=== PATIENT | female | born 1930 | race Caucasian/White ===

== ENCOUNTER 2020-04-05 00:28 | Emergency (ER) | payer OTHER ==
--- OUTSIDE RECORDS SUMMARY | 2020-04-05 00:31 | XMS REPORT | Clinical Summary ---
:1930 Author Organization [facility] Address [address] [place] [address] Care Team Providers Name Role Phone Issa Beckford MD Primary Care Provider Allergies Active Allergy Reactions Severity Noted Date Comments Sulfa (Sulfonamide Antibiotics) Unknown Reaction 03/27 Medications Medication Sig Dispensed Refills Start Date End Date Status Ventolin HFA 90 Inhale 2 puffs 0 03/01/2020 Active mcg/actuation every 6 (six) inhaler hours as needed. amLODIPine (NORVASC) Take 10 mg by 0 01/16/2020 Active 10 mg tablet mouth daily. metoprolol succinate 0 01/16/2020 Active XL (TOPROL-XL) 100 mg 24 hr tablet clonIDINE (CATAPRES) Take 0.1 mg by 0 03/13/2020 Active 0.1 MG tablet mouth. levothyroxine Take 112 mcg by 0 03/20/2020 Active (SYNTHROID) 112 mcg mouth every tablet morning. losartan-hydrochloro Take 1 tablet by 0 12/28/2019 Active thiazide (HYZAAR) mouth every 100-25 mg per tablet morning. multivitamin Take 1 tablet by 0 Active (THERAGRAN) tablet mouth daily. calcium carbonate Take 600 mg by 0 Active (Calcium 600) 600 mg mouth 2 (two) calcium (1,500 mg) times a day with tablet meals. aspirin (ECOTRIN) 81 Take 81 mg by 0 Active MG enteric coated mouth daily. tablet cholecalciferol, Take 400 Units by 0 Active vitamin D3, 400 unit mouth daily. tablet docusate sodium Take by mouth. 0 Active (STOOL SOFTENER ORAL) polyethylene glycol Take by mouth. 0 Active 3350 (MIRALAX ORAL) mv-min/vit Take by mouth. 0 Acti ve C/glut/lysine/hb124 (IMMUNE SUPPORT ORAL) predniSONE Take 4 tabs for 5 50 tablet 0 03/27/2020 04/10/2020 Active (DELTASONE) 10 mg days, 3 tabs for 5 tablet days, 2 tabs for 5 days, 1 tabs for 5days albuterol (ACCUNEB) Take 3 mL (2.5 mg 360 mL 3 04/04/2020 1 Active 2.5 mg /3 mL (0.083 total) by %) nebulizer nebulization every solutionIndications: 6 (six) hours as Pulmonary nodule, needed for SOB (shortness of wheezing for up to breath) on exertion 30 days. nebulizers 1 vial Every 6 1 each 1 04/04/2020 05/04/2020 Ac tive miscIndications: hours while awake Pulmonary nodule, as needed (RT) SOB (shortness of (sob) for up to 30 breath) on exertion days. doxycycline Take 1 tablet (100 14 tablet 0 03/27/2020 04/03/20 20 (VIBRA-TABS) 100 MG mg total) by mouth tablet 2 (two) times a day for 7 days. Active Problems Not on file Encounters Date Type Specialty Care Team Description 04/04/2020 Orders Only Pulmontena Brice SOB (shortness of breath) on exertion (Primary Dx); RADHA Killian Pulmonary nodu le 03/29/2020 Hospital Encounter Radiology Fiona Bernard MD Arriv ed 03/29/2020 Travel 03/29/2020 Orders Only Pulmonology Micki Manriquez MA Lung mass ( Primary Dx) 03/29/2020 Orders Only Pulmonology Fiona Bernard MD Lung mass ( Primary Dx) 03/28/2020 Telephone PulmonMaria D Lindquist MA 03/27/2020 Office Visit Pulmonology Fiona Bernard MD Pulmonary n odule (Primary Dx); Lung mass 03/26/2020 Travel after 04/05/2019 Family History Medical History Relation Name Comments No Known Problems Brother No Known Problems Father No Known Problems Maternal Aunt No Known Problems Maternal Grandfather No Known Problems Maternal Grandmother No Known Problems Maternal Uncle No Known Problems Mother No Known Problems Other No Known Problems Paternal Aunt No Known Problems Paternal Grandfather No Known Problems Paternal Grandmother No Known Problems Paternal Uncle No Known Problems Sister Alpha-1 antitrypsin deficiency Neg Hx Asthma Neg Hx COPD Neg Hx Cancer Neg Hx Coronary artery disease Neg Hx Deep vein thrombosis Neg Hx Diabetes Neg Hx Emphysema Neg Hx Heart failure Neg Hx Hypertension Neg Hx Pulmonary Arterial Hypertension Neg Hx Pulmonary embolism Neg Hx Sarcoidosis Neg Hx Sleep apnea Neg Hx Relation Name Status Comments Brother Father Maternal Aunt Maternal Grandfather Maternal Grandmother Maternal Uncle Mother Other Paternal Aunt Paternal Grandfather Paternal Grandmother Paternal Uncle Sister Social History Tobacco Use Types Packs/Day Years Used Date Never Smoker Smokeless Tobacco: Never Used Alcohol Use Drinks/Week oz/Week Comments Never Alcohol Habits Answer Date Recorded How often do you have a drink containing alcohol? Never 03/27/2020 How many drinks containing alcohol do you have on a typical Not asked day when you are drinking? How often do you have six or more drinks on one occasion? No t asked Sex Assigned at Date Recorded Not on file COVID-19 Exposure Response Date Recorded In the last month, have you been in contact with No / Unsure 03/26/2020 10:34 AM CDT someone who was confirmed or suspected to have Coronavirus / COVID-19? Last Filed Vital Signs Vital Sign Reading Time Taken Comments Blood Pressure - - Pulse 69 03/27/2020 2:09 PM CDT Temperature - - Respiratory Rate - - Oxygen Saturation 98% 03/27/2020 2:09 PM CDT Inhaled Oxygen Concentration - - Weight - - Height - - Body Mass Index - - Plan of Treatment Date Type Specialty Care Team Description 04/23/2020 [place] [address] [phone] Health Maintenance Due Date Last Done Comments SHINGLES VACCINES (#1) 1982 65+ PNEUMOCOCCAL VACCINE (1 of 1 - PPSV23) 1997 INFLUENZA VACCINE 03/13/2020 Results Not on fileafter 04/05/2019 Insurance Payer Benefit Plan / Subscriber ID Effective Dates Phone Addre ss Type Group HUMANA MEDICARE HUMANA MEDICARE [id number] 2018-Present PPO PPO/PFFS/ERS MCR (Home) [place] [address] Advance Directives For more information, please contact: [phone] Type Date Recorded Patient Supervisor Policy Change Clerks Explanati on Advance Directives, Living Will and Medical Power of Creative Producer
--- OUTSIDE RECORDS SUMMARY | 2020-04-05 00:31 | XMS REPORT | Summary of Care ---
:1930 Author Organization [facility] - Health Address [address] [place] [id number] Care Team Providers Name Role Phone Issa Beckford Primary Care Provider Encounter Details Date Type Department Care Team Description 02/02/2020 Orders Only [facility] Doctor Unassigned, No [address] [facility] [place] [address] [address] [place] [address] Allergies Active Allergy Reactions Severity Noted Date Comments Sulfa (Sulfonamide Antibiotics) Rash 8 documented as of this encounter (statuses as of 02/02/2020) Medications Medication Sig Dispensed Refills Start Date End Date Status irbesartan 300 mg Take 300 mg by 0 Active tablet mouth at bedtime. metoprolol succinate Take 100 mg by 0 Active XL (TOPROL XL) 100 mg mouth daily. 24 hr tablet amLODIPine 5 mg tablet Take 1 tablet by 30 tablet 0 04/17/2018 Active mouth daily. aspirin 81 mg chewable Take 81 mg by 0 Active tablet mouth daily. multivit with Take by mouth. 0 Active minerals/lutein (MULTIVITAMIN 50 PLUS ORAL) calcium Take by mouth. 0 Acti ve carbonate/vitamin D3 (CALCIUM 500 + D ORAL) levothyroxine 112 mcg Take 1 tablet by 30 tablet 0 06/04/2019 Active tabletIndications: mouth every Complicated UTI morning. (urinary tract infection), Colitis albuterol 90 Inhale 2 Puffs 8.5 g 11 11/25/2019 A ctive mcg/actuation every 6 (six) inhalerIndications: hours as needed Dyspnea on exertion for Wheezing or Shortness of Breath. documented as of this encounter (statuses as of 02/02/2020) Active Problems Problem Noted Date UTI (urinary tract infection) 06/03/2019 Dizziness 06/03/2019 C. difficile colitis 06/03/2019 Complicated UTI (urinary tract infection) 06/02/2019 Essential hypertension 04/17/2018 Syncope 04/16/2018 documented as of this encounter (statuses as of 02/02/2020) Social History Tobacco Use Types Packs/Day Years Used Date Never Smoker Smokeless Tobacco: Never Used Alcohol Use Drinks/Week oz/Week Comments Never Alcohol Habits Answer Date Recorded How often do you have a drink containing alcohol? Never 01/31/2019 How many drinks containing alcohol do you have on a typical Not asked day when you are drinking? How often do you have six or more drinks on one occasion? No t asked Sex Assigned at Date Recorded Not on file Job Start Date Occupation Industry Not on file Not on file Not on file Travel History Travel Start Travel End No recent travel history available. documented as of this encounter Last Filed Vital Signs Not on filedocumented in this encounter Plan of Treatment Date Type Specialty Care Team Description 02/02/2020 Office Visit Pulmonary Disease Sloan Levine, [address] [place] [address] Health Maintenance Due Date Last Done Comments DTaP,Tdap,and Td Vaccines (1 - Tdap) 1941 Depression Screening 1944 Zoster Recombinant Vaccine (SHINGRIX) (1 of 2) 1982 Medicare Wellness Visit 1997 Osteoporosis Screening 1997 PNEUMOCOCCAL VACCINES 65+ (1 of 2 - PCV13) 1997 INFLUENZA VACCINE (#1) 2020 documented as of this encounter Implants Implanted Type Area Mural Artist Device Identifier Shelf Exp iration Model / Serial Date / Lot Knee documented as of this encounter Procedures Procedure Name Priority Date/Time Associated Diagnosis Comme nts CONSENT/REFUSAL FOR Routine 02/02/2020 8:48 AM CDT DIAGNOSIS AND TREATMENT documented in this encounter Results Not on filedocumented in this encounter Additional Health Concerns Infection Onset Date Last Indicated Resolved Time Extended Contact- CDiff 06/04/2019 06/04/2019 documented as of this encounter Insurance Payer Benefit Plan / Subscriber ID Effective Dates Phone Addre ss Type Group HUMANA - HUMANA [id number] [facility] Adv MANAGED MEDICARE t FFS MEDICARE documented as of this encounter
--- OUTSIDE RECORDS SUMMARY | 2020-04-05 00:31 | XMS REPORT | Continuity of Care Document ---
:1930 Author Organization [facility] t Address [address] [place] [address] Care Team Providers Name Role Phone Roberto Beckford MD Primary Care Physician Yuniel GARCIA Attending Clinician Unavailable Abner CHUNG Attending Clinician Marco Antonio GALVAN Attending Clinician Declan GARCIA Attending Clinician Unavailable Doctor Unassigned, Name Attending Clinician Unavailable Only, Test Attending Clinician Unavailable Pob, Lab Main Attending Clinician Unavailable Amaya GALVAN Attending Clinician Payers Payer Name Policy Type Policy Effective Date Expiration Date Sour ce Number HUMANA [id number] 2018 [place] MEDICAREHUMANA 00:00:00 Jew MEDICARE PPO/PFFS/ERS [id number] 2019 -PresentPPO Problems This patient has no known problems. Allergies, Adverse Reactions, Alerts Allergy Allergy Status Severity Reaction(s) Onset Inactive Treating Comm ents Source Name Type Date Date Clinician Sulfa Propensi Active Unknown [place] (Sulfona ty to Reaction 9-15 Method i mide adverse 00:00: st Antibiot reaction 00 ics) s to drug Family History Family Member Diagnosis Comments Start Date Stop Date Source Natural brother No Known Problems [place] Jew Natural father No Known Problems Stefanie ston Jew Maternal aunt No Known Problems [place] Jew Maternal No Known Problems [place] grandfather Jew Maternal No Known Problems [place] grandmother Jew Maternal uncle No Known Problems Stefanie ston Jew Natural mother No Known Problems Stefanie ston Jew Other No Known Problems [place] Jew Paternal aunt No Known Problems [place] Jew Paternal No Known Problems [place] grandfather Jew Paternal No Known Problems [place] grandmother Jew Paternal uncle No Known Problems Stefanie ston Jew Natural sister No Known Problems Stefanie ston Jew Family member Alpha-1 antitrypsin [place] deficiency Jew Family member Asthma [place] Jew Family member COPD [place] Jew Family member Cancer [place] Jew Family member Coronary artery [place] disease Jew Family member Deep vein thrombosis [place] Jew Family member Diabetes [place] Jew Family member Emphysema [place] Jew Family member Heart failure [place] Jew Family member Hypertension [place] Jew Family member Pulmonary Arterial Stefanie ston Hypertension Jew Family member Pulmonary embolism Stefanie ston Jew Family member Sarcoidosis [place] Jew Family member Sleep apnea [place] Jew Social History Social Habit Start Date Stop Date Quantity Comments Source History [facility] Meth odist Alcohol Std Drinks History [facility] Meth odist Alcohol Binge Sex Assigned At [facility] ethodist Exposure to Not sure [place] Metho dist SARS-CoV-2 (event) Tobacco use and 2020-03-27 2020-03-27 Never used [facility] ethodist exposure 00:00:00 00:00:00 Alcohol intake 2020-03-27 2020-03-27 Lifetime [facility] thodist 00:00:00 00:00:00 non-drinker (finding) History SDOH 2020-03-27 2020-03-27 1 [place] Meth odist Alcohol Frequency 00:00:00 00:00:00 Smoking Status Start Date Stop Date Source Never smoker [facility] Medications Ordered Filled Start Stop Current Ordering Indication Dosage Frequency Signature Comments Components Source Medication Medication Date Date Medication? Clinician (SIG) Name Name albuterol 2020- Yes SOB 2.5mg Q6H Take 3 mL [place] (ACCUNEB) 04-04 (shortness (2.5 mg Methodi 2.5 mg /3 00:00: 23:59 of breath) total) by st mL (0.083 00 :00 on exertion nebulizati %) on every 6 nebulizer (six) solution hours as needed for wheezing for up to 30 days. nebulizers 2020- Yes SOB 1{vial} Q6H 1 vial [place] misc 04-0423 (shortness Every 6 Metho di 00:00: 23:59 of breath) hours st 00 :00 on exertion while awake as needed (RT) (sob) for up to 30 days. multivitami 2020-0 Yes 1{tbl} QD Take 1 [place] n 9-15 tablet by Methodi (THERAGRAN) 14:09: mouth st tablet 48 daily. calcium 2020-0 Yes 600mg Q.5D Take 600 [place] carbonate 9-15 mg by Methodi (Calcium 14:09: mouth 2 st 600) 600 mg 48 (two) calcium times a (1,500 mg) day with tablet meals. aspirin 2020-0 Yes 81mg QD Take 81 mg [place] (ECOTRIN) 15 by mouth Method i 81 MG 14:09: daily. st enteric 48 coated tablet cholecalcif 2020-0 Yes 400U QD Take 400 [place] lian, 9-15 Units by Methodi vitamin D3, 14:09: mouth st 400 unit 48 daily. tablet docusate 2020-0 Yes Take by [place] sodium -15 mouth. Methodi (STOOL 14:09: st SOFTENER 48 ORAL) polyethylen 2020-0 Yes Take by Stefanie ston e glycol -15 mouth. Methodi 3350 14:09: st (MIRALAX 48 ORAL) mv-min/vit 2020-0 Yes Take by [place] C/glut/lysi 15 mouth. Method i ne/hb124 14:09: st (IMMUNE 48 SUPPORT ORAL) predniSONE 2020-0 2020- Yes Take 4 [place] (DELTASONE) 03-27 tabs for 5 M ethodi 10 mg 00:00: 23:59 days, 3 st tablet 00 :00 tabs for 5 days, 2 tabs for 5 days, 1 tabs for 5days doxycycline 2020-0 2020- No 100mg Q.5D Take 1 [place] (VIBRA-TABS 03-27 tablet Metho di ) 100 MG 00:00: 23:59 ([address] tablet 00 :00 total) by mouth 2 (two) times a day for 7 days. levothyroxi 2020-0 Yes 112ug QD Take 112 H [facility] ne 9-08 mcg by Methodi (SYNTHROID) 00:00: mouth st 112 mcg 00 every tablet morning. clonIDINE 2020-0 Yes .1mg Take 0.1 [place] (CATAPRES) 9-01 mg by Methodi 0.1 MG 00:00: mouth. st tablet 00 Ventolin 2019-0 Yes 2{puff} Q6H Inhale 2 Ho xi HFA 90 8-20 puffs Methodi mcg/actuati 00:00: every 6 st on inhaler 00 (six) hours as needed. amLODIPine 2019-0 Yes 10mg QD Take 10 mg [place] (NORVASC) 7-06 by mouth Method i 10 mg 00:00: daily. st tablet 00 metoprolol 2019-0 Yes [place] succinate 7-06 Methodi XL 00:00: st (TOPROL-XL) 00 100 mg 24 hr tablet losartan-hy Yes 1{tbl} QD Take 1 Ho xi drochloroth 6-17 tablet by Met hodi iazide 00:00: mouth st (HYZAAR) 00 every 100-25 mg morning. per tablet Vital Signs Vital Name Observation Time Observation Value Comments Source Heart rate 2020-03-27 14:09:00 69 /min Lexa Mallory Oxygen saturation in 2020-03-27 14:09:00 98 /min Lexa Mallory Arterial blood by Pulse oximetry Procedures This patient has no known procedures. Plan of Care Planned Activity Planned Date Details Comments Source Future Scheduled 2020-03-13 INFLUENZA VACCINE Robynto n Jew Test 00:00:00 [code = INFLUENZA VACCINE] Future Scheduled 1997 65+ PNEUMOCOCCAL [place] Jew Test 00:00:00 VACCINE (1 of 1 - PPSV23) [code = 65+ PNEUMOCOCCAL VACCINE (1 of 1 - PPSV23)] Future Scheduled 1982 [facility]IN[facility] 00:00:00 [code = SHINGLES VACCINES (#1)] Encounters Start End Encounter Admission Attending Care Care Encounter Source Date/Time Date/Time Type Type Clinicians Facility Department ID 2020-04-04 2020-04-04 Telephone LUIS Levine [id number] 00:00:00 00:00:00 Sloan Conner [id number] [place] [id number] Yuan [id number] [address] 2020-03-29 2020-03-29 Outpatient [facility] [id number] 053 [place] 00:00:00 00:00:00 JEANETH 959 Method i 2020-03-27 2020-03-27 Outpatient [facility] [id number] 824 [place] 00:00:00 00:00:00 JEANETH 196 Method i 2020-03-22 2020-03-22 Orders Doctor REBECA [id number] 00:00:00 00:00:00 Only Unassigned, DELPHINE [id number] [place] [facility] [id number] 2020-03-21 2020-03-21 Fitting Room Supervisor Only, [facility] [id number] 13:55:31 14:10:31 Visit Test [place] [id number] [place] [id number] [place] [id number] 2020-03-02 2020-03-02 [facility] [id number] 00:00:00 00:00:00 Shiwan [place] [id number] [place] [id number] Professio [phone] [address] 2020-02-23 2020-02-23 [facility] [id number] 00:00:00 00:00:00 Shiwan [place] [id number] [place] [id number] Professio [id number] [address] 2020-02-20 2020-02-20 [facility] [id number] 00:00:00 00:00:00 Shiwan [place] [id number] [place] [id number] Professio [id number] [address] 2020-02-16 2020-02-16 Fitting Room Supervisor Pob, [facility] [id number] 13:57:41 14:40:10 Visit Lab Main [place] [id number] [place] [id number] Professio [phone] [facility] [address] [facility] 2020-02-15 2020-02-15 [facility] [id number] 15:21:00 23:59:00 Encounter Gadiel H [id number] BUILDING [id number] 2020-02-15 2020-02-15 [facility] [id number] 09:28:00 23:59:00 Encounter Gadiel H [id number] [facility] [id number] 2020-02-14 2020-02-14 [facility] [place] Conde [id number] 09:27:00 23:59:00 Encounter Gadiel H [id number] [facility] [id number] Results This patient has no known results.
--- OUTSIDE RECORDS SUMMARY | 2020-04-05 00:32 | XMS REPORT | Summary of Care ---
:[address] [facility] Address [address] [place] [address] Care Team Providers Name Role Phone Shakeel Issa Roberto Primary Care Provider Reason for Referral (Routine) Status Reason Specialty Diagnoses / Referred By Referred To Procedures Contact Contact New Request Pulmonary Function Diagnoses Dyspnea on exertion Lung nodule Sloan Levine, Technologist Procedures DIAGNOSTIC PROCEDURE Preferred Location: [facility] PFT Lab-Main DO [address] [place] [phone] MRI/CAT Scan (Routine) Status Reason Specialty Diagnoses / Referred By Referred To Procedures Contact Contact New Request Diagnostic Diagnoses Dyspnea on exertion Lung nodule Sloan Levine, Radiology Procedures CT THORAX WO CONTRAST DO [address] [place] [phone] Reason for Visit Reason Comments Follow-up Dyspnea on exertion Encounter Details Date Type Department Care Team Description 02/02/2020 Office Visit [facility] Sloan Levine DO Dyspnea on exertion (Primary Dx); Pulmonary Clinic [address] [place] [address] Lung nod[address] [place] [address] , [address] [phone] Allergies Active Allergy Reactions Severity Noted Date [...] Travel End No recent travel history available. COVID-19 Exposure Response Date Recorded In the last month, have you been in contact with No / Unsure 02/02/2020 9:02 AM CDT someone who was confirmed or suspected to have Coronavirus / COVID-19? documented as of this encounter Last Filed Vital Signs Vital Sign Reading Time Taken Comments Blood Pressure 150/79 02/02/2020 9:04 AM CDT Pulse 84 02/02/2020 9:03 AM CDT Temperature - - Respiratory Rate 20 02/02/2020 9:03 AM CDT Oxygen Saturation 94% 02/02/2020 9:03 AM CDT Inhaled Oxygen Concentration - - Weight 57.5 kg (126 lb 11.2 oz) 02/02/2020 9:03 AM CDT Height 165.1 cm (5' 5") 02/02/2020 9:03 AM CDT Body Mass Index 21.08 02/02/2020 9:03 AM CDT documented in this encounter Progress Notes Sloan Levine, - 02/02/2020 9:00 AM CDT [facility] Inter[facility] Pulmonology [facility] Chief Complaint: Shortness of breath History of Present Illness: Laura Grande is a 89 year old female here for follow up of shortness of breath with exertion, can walk about 75 yards before she gets short of breath. Symptoms somewhatimproved with albuterol but not using inhaler appropriately. No leg swelling. Past Medical History: has a past medical history of HTN (hypertension) and Hypothyroidism. Past Surgical History: has a past surgical history that includes tonsillectomy; pham bladder suspension; and cholecystectomy. Family History: family history includes Cancer in her mother; Stroke in her father. Social History: reports that she has never smoked. She has never used smokeless tobacco. She reports that she does not drink alcohol. Review of Systems: Review of Systems Constitutional: Negative. HENT: Negative. Eyes: Negative. Respiratory: Positive for shortness of breath. Cardiovascular: Negative. Gastrointestinal: Negative. Genitourinary: Negative. Musculoskeletal: Negative. Skin: Negative. Neurological: Positive for numbness. Psychiatric/Behavioral: Negative. Endocrine: Endocrine negative Objective: BP (!) 150/79 | Pulse 84 | Resp 20 | Ht 5' 5" (1.651 m) | Wt 126 lb 11.2 oz (57.5 kg) | SpO2 94% | BMI 21.08 kg/m Physical Exam Constitutional: She is oriented to person, place, and time. She appears well- developed and well-nourished. HENT: Head: Normocephalic and atraumatic. Eyes: Conjunctivae and EOM are normal. Neck: Normal range of motion. Neck supple. Cardiovascular: Normal rate and regular rhythm. Pulmonary/Chest: Effort normal and breath sounds normal. Abdominal: Soft. Bowel sounds are normal. Musculoskeletal: Normal range of motion. Neurological: She is alert and oriented to person, place, and time. Skin: Skin is warm and dry. Psychiatric: She has a normal mood and affect. Her behavior is normal. Judgment and thought content normal. Labs/Studies: CXR - reviewed images, lung mass, appears stable, RUL but also with some scattered nodules Assessment: ICD-10-CM ICD-9-CM 1. Dyspnea on exertion R06.09 786.09 2. Lung nodule R91.1 793.11 Plan: 1. Continue with albuterol, went over proper inhaler technique 2. Will obtain repeat CT scan of lungs 3. Will obtain lung function testing 4. Follow up 3 months documented in this encounter Plan of Treatment Name Type Priority Associated Diagnoses Order S chedule CT THORAX WO IMAGING Routine Dyspnea on exert ion Expected: CONTRAST Lung nodule 02/02/2020, Expires: 02/01/2021 DIAGNOSTIC PROCEDURE PULMONARY FUNCTION Routine Dyspnea on exertion Ordered: Preferred Location: LAB Lung nodule 02/02/20 20 [facility] PFT Lab-Main Health Maintenance Due Date Last Done Comments DTaP,Tdap,and Td Vaccines (1 - Tdap) 1941 Zoster Recombinant Vaccine (SHINGRIX) (1 of 2) 1982 Medicare Wellness Visit 1997 Osteoporosis Screening 1997 PNEUMOCOCCAL VACCINES 65+ (1 of 2 - PCV13) 1997 INFLUENZA VACCINE (#1) 2020 Depression Screening 02/01/2021 02/02/2020 documented as of this encounter Implants Implanted Type Area Internal Communications Writer Device Identifier Shelf Exp iration Model / Serial Date / Lot Knee documented as of this encounter Results Not on filedocumented in this encounter Visit Diagnoses Diagnosis Dyspnea on exertion - Primary Other dyspnea and respiratory abnormalit y Lung nodule Solitary pulmonary nodule documented in this encounter Additional Health Concerns Infection Onset Date Last Indicated Resolved Time Extended Contact- CDiff 06/04/2019 06/04/2019 documented as of this encounter Insurance Payer Benefit Plan / Subscriber ID Effective Dates Phone Addre ss Type Group HUMANA - HUMANA [id number] 2017-[facility] Adv MANAGED MEDICARE t FFS MEDICARE documented as of this encounter
--- OUTSIDE RECORDS SUMMARY | 2020-04-05 00:32 | XMS REPORT | Summary of Care ---
:1930 Author Organization [facility] Address [address] [place] [address] Care Team Providers Name Role Phone ShakeelIssa Primary Care Provider Reason for Visit Reason Comments Orders Encounter Details Date Type Department Care Team Description 02/02/2020 Telephone [facility] Pulmonary Sloan Levine, Orders Clinic [address] Karlee Stewart [address] [place] [phone] Allergies Active Allergy Reactions Severity Noted Date Comments Sulfa (Sulfonamide Antibiotics) Rash 8 documented as of this encounter (statuses as of 02/03/2020) Medications Medication Sig Dispensed Refills Start Date [...] as of this encounter (statuses as of 02/03/2020) Active Problems Problem Noted Date UTI (urinary tract infection) 06/03/2019 Dizziness 06/03/2019 C. difficile colitis 06/03/2019 Complicated UTI (urinary tract infection) 06/02/2019 Essential hypertension 04/17/2018 Syncope 04/16/2018 documented as of this encounter (statuses as of 02/03/2020) Social History Tobacco Use Types Packs/Day Years [...] Treatment Date Type Specialty Care Team Description 02/09/2020 Appointment Radiology Sloan Levine DO [address] [place] [address] 05/04/2020 Office Visit Pulmonary Disease Sloan Levine DO [address] [place] [address] Health Maintenance Due Date Last Done Comments DTaP,Tdap,and Td Vaccines (1 - Tdap) 1941 Zoster Recombinant Vaccine (SHINGRIX) (1 of 2) 1982 Medicare Wellness Visit 1997 Osteoporosis Screening 1997 PNEUMOCOCCAL VACCINES 65+ (1 of 2 - PCV13) 1997 INFLUENZA VACCINE (#1) 2020 Depression Screening 02/01/2021 02/02/2020 documented as of this encounter Implants Implanted Type Area Accounts Payable Supervisor Device Identifier Shelf Exp iration Model / Serial Date / Lot Knee documented as of this encounter Results Not on filedocumented in this encounter Additional Health Concerns Infection Onset Date Last Indicated Resolved Time Extended Contact- CDiff 06/04/2019 06/04/2019 documented as of this encounter Insurance Payer Benefit Plan / Subscriber ID Effective Dates Phone Addre ss Type Group HUMANA - HUMANA [id number] 2017-[facility] Adv MANAGED MEDICARE t FFS MEDICARE documented as of this encounter
--- OUTSIDE RECORDS SUMMARY | 2020-04-05 00:32 | XMS REPORT | Summary of Care ---
:1930 Author Organization [facility] Address [address] [place] [address] Care Team Providers Name Role Phone Issa Beckford Primary Care Provider Reason for Visit MRI/CAT Scan (Routine) Status Reason Specialty Diagnoses / Referred By Referred To Procedures Contact Contact New Request Diagnostic Diagnoses Dyspnea on exertion Lung nodule Sloan Levine, Radiology Procedures CT THORAX W CONTRAST CT THORAX WO CONTRAST CHG CT SCAN,ABDOMENT AND PELVIS,W CONTRAST CHG CT SCAN,THORAX,W/O CONTRAST CHG CAT SCAN OF CHEST CONTRAST DO [address] [place] [address] Encounter Details Date Type Department Care Team Description 02/09/2020 Hospital Encounter [facility] Abner Watson branmery, Arrived [place] [facility] [address] [place] [phone] Allergies Active Allergy Reactions Severity Noted Date Comments Sulfa (Sulfonamide Antibiotics) Rash 8 documented as of this encounter (statuses as of 02/10/2020) Medications Medication Sig Dispensed Refills Start Date [...] as of this encounter (statuses as of 02/10/2020) Active Problems Problem Noted Date UTI (urinary tract infection) 06/03/2019 Dizziness 06/03/2019 C. difficile colitis 06/03/2019 Complicated UTI (urinary tract infection) 06/02/2019 Essential hypertension 04/17/2018 Syncope 04/16/2018 documented as of this encounter (statuses as of 02/10/2020) Social History Tobacco Use Types Packs/Day Years [...] been in contact with No / Unsure 02/09/2020 9:53 AM CDT someone who was confirmed or suspected to have Coronavirus / COVID-19? documented as of this encounter Last Filed Vital Signs Not on filedocumented in this encounter Plan of Treatment Date Type Specialty Care Team Description 05/04/2020 Office Visit Pulmonary Disease Sloan Levine DO [address] [place] [phone] Health Maintenance Due Date Last Done Comments DTaP,Tdap,and Td Vaccines (1 - Tdap) 1941 Zoster Recombinant Vaccine (SHINGRIX) (1 of 2) 1982 Medicare Wellness Visit 1997 Osteoporosis Screening 1997 PNEUMOCOCCAL VACCINES 65+ (1 of 2 - PCV13) 1997 INFLUENZA VACCINE (#1) 2020 Depression Screening 02/01/2021 02/02/2020 documented as of this encounter Implants Implanted Type Area Harpooner Device Identifier Shelf Exp iration Model / Serial Date / Lot Knee documented as of this encounter Procedures Procedure Name Priority Date/Time Associated Comments Diagnosis CT THORAX W CONTRAST Routine 02/09/2020 10:50 AM Dyspnea on exertion Results for this CDT Lung nodule procedure are i n the results section. HB CREATININE BLOOD Routine 02/09/2020 10:49 AM R esults for this CDT procedure are i n the results section. documented in this encounter Results CT THORAX W CONTRAST (02/09/2020 10:50 AM CDT) Specimen Narrative Performed At HISTORY: Chronic dyspnea PACS/VR/DOSE TECHNIQUE: Contrast-enhanced 64-mutidete ctor CT scan of the chest was completed with intravenous injection of Omnipaque-35 0 non ionic contrast medium. Subsequently numerous sagittal, coronal and MN P reformations were generated. FINDINGS: Comparison is made with 018 CT chest study. Thyroid gland is very small. Trachea and central bronc hial airways appear unremarkable. Numerous spiculated noncalcified soft ti ssue nodules are seen scattered throughout both lungs. Largest mass is 4 .4 x 2.3 cm size in the right apical lung. There are many new nodules since the previous study and the previously visualized nodules all have s hown interval worsening, some of the nodules increasing in size by 2 or 3 times. Small right pleural effusion noted which is a new finding since the previous study. No left-sided pleural effusion or any pericardial effusion. Calcification is seen in the right pleural base nodule (8:31) and there is possibly a very faint calcification in right lower jac g pleural-based 2 cm nodule (8:51). Slightly enlarged lymph nodes again note d in the mediastinum surrounding the trachea and subcarinal space, larges t lymph node in short axis dimension is 9 mm probably increased in size by approx imately 20% since the previous study. Thoracic kyphosis and dextroscoliosis no lexi without any compression fracture deformity or any aggressive bon e lesions. No acute pulmonary thromboembolism detected. Central p ulmonary arteries are dilated although the main pulmonary leandra ry is measuring only 26 mm. Atherosclerosis very mild coronary ather osclerosis is noted. A 10 mm mass in the subdiaphragmatic rig ht lobe of the liver noted which has slightly increased in size compared with the previ ous study. 8 mm cyst is seen in the lateral cortical surface of the right k idney. Short sliding hiatal hernia noted. Noted throughout th e thoracic aorta with ascending aorta is dilated up to 3.7 cm. CONCLUSIONS: 1. Significant interval worsening with numerous new no dules in both lungs and significant increase in the size of previously vis ualized nodules since 2018 study. Findings remain concerning f or pulmonary metastasis. Please correlate with prior clinical workup for diagnosis and further management. 2. Underlying chronic changes of obstruc tive lung disease noted. Small right pleural effusion is new since 2018 study. 3. Interval worsening with increase in the size of med iastinal lymph nodes. 4. Increase in size of liver lesion whic h could be hemangioma. 5. C5, C6 and C7 vertebral bodies showed sclerosis whi ch is new since the previous study which could be either deg enerative change or due to metastatic lesion, however, no metastati c lesions are visualized in the thoracic vertebral bodies. Procedure Note [facility], Radiant Results Inft User - 2019 11:23 AM CDT HISTORY: Chronic dyspnea TECHNIQUE: Contrast-enhanced 64-mutidete ctor CT scan of the chest was completed with intravenous injection of Omnipaque-350 non ionic contrast medium. Subsequently numerous sagittal, coronal and MIP reformations were generated. FINDINGS: Comparison is made with 018 CT chest study. Thyroid gland is very small. Trachea and central bronchial airways appear unremarkable. Numerous spiculated noncalcified soft ti ssue nodules are seen scattered throughout both lungs. Largest mass is 4 .4 x 2.3 cm size in the right apical lung. There are many new nodules since the previous study and the previously visualized nodules all have s hown interval worsening, some of the nodules increasing in size by 2 or 3 times. Small right pleural effusion noted which is a new finding since the previous study. No left-sided pleural ef fusion or any pericardial effusion. Calcification is seen in the right pleur al base nodule (8:31) and there is possibly a very faint calcification in r ight lower lung pleural-based 2 cm nodule (8:51). Slightly enlarged lymph nodes again note d in the mediastinum surrounding the trachea and subcarinal space, larges t lymph node in short axis dimension is 9 mm probably increased in size by approximately 20% since the previous study. Thoracic kyphosis and dextroscoliosis no lexi without any compression fracture deformity or any aggressive bon e lesions. No acute pulmonary thromboembolism detec lexi. Central pulmonary arteries are dilated although the main pulmonary leandra ry is measuring only 26 mm. Atherosclerosis very mild coronary ather osclerosis is noted. A 10 mm mass in the subdiaphragmatic rig ht lobe of the liver noted which has slightly increased in size compared with the previous study. 8 mm cyst is seen in the lateral cortical surface of the right kidney. Short sliding hiatal hernia noted. Noted throughout th e thoracic aorta with ascending aorta is dilated up to 3.7 cm. CONCLUSIONS: 1. Significant interval worsening with n umerous new nodules in both lungs and significant increase in the size of previously visualized nodules since 2018 study. Findings remain concerning f or pulmonary metastasis. Please correlate with prior clinical workup for diagnosis and further management. 2. Underlying chronic changes of obstruc tive lung disease noted. Small right pleural effusion is new since 2018 study. 3. Interval worsening with increase in t he size of mediastinal lymph nodes. 4. Increase in size of liver lesion whic h could be hemangioma. 5. C5, C6 and C7 vertebral bodies showed sclerosis which is new since the previous study which could be either deg enerative change or due to metastatic lesion, however, no metastati c lesions are visualized in the thoracic vertebral bodies. Performing Organization Address City/State/Zipcode Phone Number PACS/VR/DOSE POCT CREATININE (02/09/2020 10:49 AM CDT) Pathologist Sig nature POCT Creatinine 0.9 0.5 - 1.1 mg/dL [facility] Specimen Blood - VENOUS Performing Organization Address City/State/Zipcode Phone Number [facility] CLIA: [id number], [address] [place], [place] [address] documented in this encounter Visit Diagnoses Diagnosis Dyspnea on exertion Other dyspnea and respiratory abnormalit y Lung nodule Solitary pulmonary nodule documented in this encounter Administered Medications Medication Order MAR Action Action Date Dose Rate Site iohexol (OMNIPAQUE 350 BULK-75 mL) Given 02/09/2020 10:45 AM CDT 75 mL injection 75 mL 75 mL, Intravenous, ONCE, 1 dose, Alena 02/09/20 at 1045, Routine documented in this encounter Additional Health Concerns Infection Onset Date Last Indicated Resolved Time Extended Contact- CDiff 06/04/2019 06/04/2019 documented as of this encounter Insurance Payer Benefit Plan / Subscriber ID Effective Dates Phone Addre ss Type Group HUMANA - HUMANA [id number] 2017-[facility] Adv MANAGED MEDICARE t FFS MEDICARE documented as of this encounter
--- OUTSIDE RECORDS SUMMARY | 2020-04-05 00:32 | XMS REPORT | Summary of Care ---
:1930 Author Organization [facility] Address [address] [place] [address] Care Team Providers Name Role Phone ShakeelIssa Primary Care Provider Reason for Visit Reason Comments Results Encounter Details Date Type Department Care Team Description 02/10/2020 Telephone [facility] ADC Pulmonary Sloan Levine DO Results Clinic [address] Karlee Stewart [address] [place] [phone] Allergies Active Allergy Reactions Severity Noted Date Comments Sulfa (Sulfonamide Antibiotics) Rash 8 documented as of this encounter (statuses as of 02/14/2020) Medications Medication Sig Dispensed Refills Start Date [...] as of this encounter (statuses as of 02/14/2020) Active Problems Problem Noted Date UTI (urinary tract infection) 06/03/2019 Dizziness 06/03/2019 C. difficile colitis 06/03/2019 Complicated UTI (urinary tract infection) 06/02/2019 Essential hypertension 04/17/2018 Syncope 04/16/2018 documented as of this encounter (statuses as of 02/14/2020) Social History Tobacco Use Types Packs/Day Years [...] Signs Not on filedocumented in this encounter Miscellaneous Notes Telephone Encounter - Laurita Hsu RN - 02/14/2020 2:51 PM CDTAdvised - Will need three different sputum samples on three different days. elephone Encounter - Kimberly Boland - 02/14/2020 1:14 PM CDTPatient spoke to the nurse Laurita but she is requesting a call back because she has a couple of concerns. Please advise. elephone Encounter - Sloan Levine DO - 02/14/2020 1:03 PM CDTSputum tests ordered. Will need three different sputum samples on three different days. elephone Encounter - Laurita Hsu RN - 02/14/2020 12:37 PM [phone] (home) Laura Grande was informed of Dr. Levine's recommendations and verbalized an understanding. She is willing to do the sputum tests first. reviewed how to obtain a sputum sample with her. Laurita RN Please let patient know CT scan reviewed, it shows nodular opacities. Overall the scan is suspiciousfor a chronic lung infection. I would recommend that we get sputum samples to look for infection andif this is not possible then to do a bronchoscopy to go down into the lungs and get samples. We can set up an appointment this week to discuss further if patient desires. Dr. Sloan Levine Telephone Encounter - Tabatha Owens - 02/13/2020 3:45 PM CDTPatient would like results of CT scan elephone Encounter - Sloan Levine DO - 02/13/2020 11:46 AM CDTPlease let patient know CT scan reviewed, it shows nodular opacities. Overall the scan is suspiciousfor a chronic lung infection. I would recommend that we get sputum samples to look for infection andif this is not possible then to do a bronchoscopy to go down into the lungs and get samples. We can set up an appointment this week to discuss further if patient desires. elephone Encounter - Victoria Vaughan MA - 02/10/2020 1:[address] Levine for results. CT was done on 02/09/2020 elephone Encounter - Kimberly Boland - 02/10/2020 8:47 AM CDTPatient is requesting a call back in regards to her CT scan results because she is concern due to her shortness of breath increasing. documented in this encounter Plan of Treatment Date Type Specialty Care Team Description 05/04/2020 Office Visit Pulmonary Disease Sloan Levine DO [address] [place] [phone] Name Type Priority Associated Diagnoses Order S chedule SPUTUM CULTURE LAB Routine Abnormal CT scan of lung E xpected: 02/14/2020, Expires: 2020 AFB CULTURE LAB Routine Abnormal CT scan of lung 3 O ccurrences starting 02/14/2020 unti l 02/11/2021 FUNGUS (ROUTINE) LAB Routine Abnormal CT scan of lung Expected: 02/14/2020, CULTURE Expires: 2020 Health Maintenance Due Date Last Done Comments DTaP,Tdap,and Td Vaccines (1 - Tdap) 1949 Zoster Recombinant Vaccine (SHINGRIX) (1 of 2) 1982 Medicare Wellness Visit 1997 Osteoporosis Screening 1997 PNEUMOCOCCAL VACCINES 65+ (1 of 1 - PPSV23) 1997 INFLUENZA VACCINE (#1) 2020 Depression Screening 02/01/2021 02/02/2020 documented as of this encounter Implants Implanted Type Area Manufacturing Controls Engineer Device Identifier Shelf Exp iration Model / Serial Date / Lot Knee documented as of this encounter Results Not on filedocumented in this encounter Visit Diagnoses Diagnosis Abnormal CT scan of lung - Primary Other nonspecific abnormal finding of tabitha ng field documented in this encounter Additional Health Concerns Infection Onset Date Last Indicated Resolved Time Extended Contact- CDiff 06/04/2019 06/04/2019 documented as of this encounter Insurance Payer Benefit Plan / Subscriber ID Effective Dates Phone Addre ss Type Group HUMANA - HUMANA [id number] [facility] t FFS MEDICARE documented as of this encounter
--- OUTSIDE RECORDS SUMMARY | 2020-04-05 00:32 | XMS REPORT | Summary of Care ---
:1930 Author Organization [facility] Address [address] [place] [address] Care Team Providers Name Role Phone Shakeel Issa Roberto Primary Care Provider Reason for Referral (Routine) Status Reason Specialty Diagnoses / Referred By Referred To Procedures Contact Contact New Request Pulmonary Function Diagnoses Dyspnea on exertion Lung nodule Sloan Levine, Technologist Procedures DIAGNOSTIC PROCEDURE Preferred Location: [facility]-Main DO [address] [place] [phone] MRI/CAT Scan (Routine) Status Reason Specialty Diagnoses / Referred By Referred To Procedures Contact Contact New Request Diagnostic Diagnoses Dyspnea on exertion Lung nodule Sloan Levine, Radiology Procedures CT THORAX WO CONTRAST DO [address] [place] [phone] Reason for Visit Reason Comments Follow-up Dyspnea on exertion Encounter Details Date Type Department Care Team Description 02/02/2020 Office Visit [facility] Sloan Levine DO Dyspnea on exertion (Primary Dx); Pulmonary Clinic [address] [place] [address] Lung nod[address] [place] [address] , [address] [phone] Allergies Active Allergy Reactions Severity Noted Date [...] Sloan Levine, - 02/02/2020 9:00 AM CDT [facility] Interventional Pulmonology Clinic Chief Complaint: Shortness [...] Office Visit Pulmonary Disease Sloan Levine DO [address] [place] [address] Name Type Priority Associated Diagnoses Order S [...] of this encounter Implants Implanted Type Area Showcase Maker Device Identifier Shelf Exp iration Model / [...] Addre ss Type Group HUMANA - HUMANA [id number] [facility] MANAGED MEDICARE t S MEDICARE documented as of this encounter
--- OUTSIDE RECORDS SUMMARY | 2020-04-05 00:33 | XMS REPORT | Summary of Care ---
:1930 Author Organization [facility] Address [address] [place] [address] Care Team Providers Name Role Phone BeckfordIssa Primary Care Provider Reason for Visit Reason Comments LAB WORK Auth/Cert Status Reason Specialty Diagnoses / Procedures Referred By C ontact Referred To Contact Phlebotomy Procedures Adc Pob Lab Draw FUNGUS (BLOOD) CULTURE Pr ofessional Office Building [address] [place] [address] , [address] [place] [address] Phone: Fax: Encounter Details Date Type Department Care Team Description 02/16/2020 Cable Engineer Outside Plant Visit [facility] Sloan Levine D O [address] [place] [phone] scan of Professional Office Pob, Adc Lab Main lung Building Phlebotomy Lab Professional Office Building [address] [place] [address] , [address] [place] [address] Allergies Active Allergy Reactions Severity Noted Date Comments Sulfa (Sulfonamide Antibiotics) Rash 8 documented as of this encounter (statuses as of 02/16/2020) Medications Medication Sig Dispensed Refills Start Date [...] as of this encounter (statuses as of 02/16/2020) Active Problems Problem Noted Date UTI (urinary tract infection) 06/03/2019 Dizziness 06/03/2019 C. difficile colitis 06/03/2019 Complicated UTI (urinary tract infection) 06/02/2019 Essential hypertension 04/17/2018 Syncope 04/16/2018 documented as of this encounter (statuses as of 02/16/2020) Social History Tobacco Use Types Packs/Day Years [...] Office Visit Pulmonary Disease Sloan Levine DO [address] [place] [address] Health Maintenance Due Date Last Done Comments DTaP,Tdap,and Td Vaccines (1 - Tdap) 1949 Zoster Recombinant Vaccine (SHINGRIX) (1 of 2) 1982 Medicare Wellness Visit 1997 Osteoporosis Screening 1997 PNEUMOCOCCAL VACCINES 65+ (1 of 1 - PPSV23) 1997 INFLUENZA VACCINE (#1) 2020 Depression Screening 02/01/2021 02/02/2020 documented as of this encounter Implants Implanted Type Area Kerfer Machine Operator Device Identifier Shelf Exp iration Model / Serial Date / Lot Knee documented as of this encounter Results Not on filedocumented in this encounter Visit Diagnoses Diagnosis Abnormal CT scan of lung Other nonspecific abnormal finding of tabitha ng field documented in this encounter Additional Health Concerns Infection Onset Date Last Indicated Resolved Time Extended Contact- CDiff 06/04/2019 06/04/2019 documented as of this encounter Insurance Payer Benefit Plan / Subscriber ID Effective Dates Phone Addre ss Type Group HUMANA - HUMANA [id number] 2017-[facility] Adv MANAGED MEDICARE t FFS MEDICARE documented as of this encounter
--- OUTSIDE RECORDS SUMMARY | 2020-04-05 00:33 | XMS REPORT | Summary of Care ---
:[address] [facility] Address [address] [place] [address] Care Team Providers Name Role Phone BeckfordIssa Primary Care Provider Reason for Visit Reason Comments LAB WORK Auth/Cert Status Reason Specialty Diagnoses / Procedures Referred By C ontact Referred To Contact Phlebotomy Procedures Adc Pob Lab Draw FUNGUS (BLOOD) CULTURE Pr ofessional Office Building [address] [place] [address] , [address] [place] [address] Phone: Fax: Encounter Details Date Type Department Care Team Description 02/16/2020 Research Recruiter Visit [facility] Sloan Levine D O [address] [place] [phone] scan of Professional Office Pob, Adc Lab Main lung Building Phlebotomy Lab Professional Office Building [address] [place] [address] , [address] [place] [address] Allergies Active Allergy Reactions Severity [...] Office Visit Pulmonary Disease Sloan Levine DO [address] [place] [address] Health Maintenance Due Date Last Done Comments DTaP,Tdap,and Td Vaccines (1 - Tdap) 1949 Zoster Recombinant Vaccine (SHINGRIX) (1 of 2) 1982 Medicare Wellness Visit 1997 Osteoporosis Screening 1997 PNEUMOCOCCAL VACCINES 65+ (1 of 1 - PPSV23) 1997 INFLUENZA VACCINE (#1) 2020 Depression Screening 02/01/2021 02/02/2020 documented as of this encounter Implants Implanted Type Area Talent Acquisition Sourcer Device Identifier Shelf Exp iration Model / [...] Addre ss Type Group HUMANA - HUMANA [id number] 2017-[facility] Adv MANAGED MEDICARE t FFS MEDICARE documented as of this encounter
--- OUTSIDE RECORDS SUMMARY | 2020-04-05 00:33 | XMS REPORT | Summary of Care ---
:1930 Author Organization [facility] Address [address] [place] [address] Care Team Providers Name Role Phone BeckfordIssa Primary Care Provider Reason for Visit Reason Comments LAB WORK Auth/Cert Status Reason Specialty Diagnoses / Procedures Referred By C ontact Referred To Contact Phlebotomy Procedures Adc Pob Lab Draw FUNGUS (BLOOD) CULTURE Pr ofessional Office Building [address] [place] [address] , [address] [place] [address] Phone: Fax: Encounter Details Date Type Department Care Team Description 02/16/2020 Chemical Compounder Helper Visit [facility] Sloan Levine D O [address] [place] [phone] scan of Professional Office Pob, Adc Lab Main lung Building Phlebotomy Lab Professional Office Building [address] [place] [address] , [address] [place] [address] Allergies Active Allergy Reactions Severity [...] Signs Not on filedocumented in this encounter Nursing Notes Kaye Watts - 02/16/2020 2:15 PM CDT Patient presented with specimen for drop-off and was identified by and name. Collection information/ total volume were documented accordingly. [facility] on : 24 hour urine Random urine Stool Swab Other SPUTUM X 3 documented in this encounter Plan of Treatment Date Type Specialty Care Team Description 05/04/2020 Office Visit Pulmonary Disease Levine TiannamignonprabhuDO [address] [place] [address] Health Maintenance Due Date Last Done Comments DTaP,Tdap,and Td Vaccines (1 - Tdap) 1949 Zoster Recombinant Vaccine (SHINGRIX) (1 of 2) 1982 Medicare Wellness Visit 1997 Osteoporosis Screening 1997 PNEUMOCOCCAL VACCINES 65+ (1 of 1 - PPSV23) 1997 INFLUENZA VACCINE (#1) 2020 Depression Screening 02/01/2021 02/02/2020 documented as of this encounter Implants Implanted Type Area Journeyman Plumber Device Identifier Shelf Exp iration Model / [...] Addre ss Type Group HUMANA - HUMANA [id number] 2017-[facility] Adv MANAGED MEDICARE t FFS MEDICARE documented as of this encounter
--- OUTSIDE RECORDS SUMMARY | 2020-04-05 00:33 | XMS REPORT | Summary of Care ---
:1930 Author Organization [facility] Address [address] [place] [address] Care Team Providers Name Role Phone BeckfordIssa Primary Care Provider Reason for Visit Reason Comments LAB WORK Auth/Cert Status Reason Specialty Diagnoses / Procedures Referred By C ontact Referred To Contact Phlebotomy Procedures Adc Pob Lab Draw FUNGUS (BLOOD) CULTURE Pr ofessional Office Building [address] [place] [address] , [address] [place] [address] Phone: Fax: Encounter Details Date Type Department Care Team Description 02/16/2020 Drill Hand Visit [facility] Sloan Levine D O [address] [place] [phone] scan of Professional Office Pob, Adc Lab Main lung Building Phlebotomy Lab Professional Office Building [address] [place] [address] , [address] [place] [address] Allergies Active Allergy Reactions Severity [...] Office Visit Pulmonary Disease Sloan Levine DO [address] [place] [address] Health Maintenance Due Date Last Done Comments DTaP,Tdap,and Td Vaccines (1 - Tdap) 1949 Zoster Recombinant Vaccine (SHINGRIX) (1 of 2) 1982 Medicare Wellness Visit 1997 Osteoporosis Screening 1997 PNEUMOCOCCAL VACCINES 65+ (1 of 1 - PPSV23) 1997 INFLUENZA VACCINE (#1) 2020 Depression Screening 02/01/2021 02/02/2020 documented as of this encounter Implants Implanted Type Area Bindery Supervisor Device Identifier Shelf Exp iration Model [...] Addre ss Type Group HUMANA - HUMANA [id number] 2017-[facility] Adv MANAGED MEDICARE t FFS MEDICARE documented as of this encounter
--- OUTSIDE RECORDS SUMMARY | 2020-04-05 00:34 | XMS REPORT | Summary of Care ---
:1930 Author Organization [facility] Address [address] [place] [address] Care Team Providers Name Role Phone Issa Beckford Primary Care Provider Encounter Details Date Type Department Care Team Description 02/15/2020 Hospital Encounter [facility] LAB Specimen Gadiel Conde, Carolee-Marcelo luna MD [address] [place] [phone] [place] [address] Allergies Active Allergy Reactions Severity Noted Date Comments Sulfa (Sulfonamide Antibiotics) Rash 8 documented as of this encounter (statuses as of 02/23/2020) Medications Medication Sig Dispensed Refills Start Date [...] as of this encounter (statuses as of 02/23/2020) Active Problems Problem Noted Date UTI (urinary tract infection) 06/03/2019 Dizziness 06/03/2019 C. difficile colitis 06/03/2019 Complicated UTI (urinary tract infection) 06/02/2019 Essential hypertension 04/17/2018 Syncope 04/16/2018 documented as of this encounter (statuses as of 02/23/2020) Social History Tobacco Use Types Packs/Day Years [...] Description 05/04/2020 Office Visit Pulmonary Disease Sloan Levine, [address] [place] [address] Health Maintenance Due Date Last Done Comments DTaP,Tdap,and Td Vaccines (1 - Tdap) 1949 Zoster Recombinant Vaccine (SHINGRIX) (1 of 2) 1982 Medicare Wellness Visit 1997 Osteoporosis Screening 1997 PNEUMOCOCCAL VACCINES 65+ (1 of 1 - PPSV23) 1997 INFLUENZA VACCINE (#1) 2020 Depression Screening 02/01/2021 02/02/2020 documented as of this encounter Implants Implanted Type Area Freezer Machine Operator Device Identifier Shelf Exp iration Model / Serial Date / Lot Knee documented as of this encounter Results Not on filedocumented in this encounter Additional Health Concerns Infection Onset Date Last Indicated Resolved Time Extended Contact- CDiff 06/04/2019 06/04/2019 documented as of this encounter Insurance Payer Benefit Plan / Subscriber ID Effective Dates Phone Addre ss Type Group HUMANA - HUMANA [id number] 2017-[facility] Adv MANAGED MEDICARE t S MEDICARE documented as of this encounter
--- OUTSIDE RECORDS SUMMARY | 2020-04-05 00:34 | XMS REPORT | Summary of Care ---
:1930 Author Organization [facility] Address [address] [place] [address] Care Team Providers Name Role Phone ShakeelIssaton Primary Care Provider Reason for Visit Reason Comments LAB WORK Auth/Cert Status Reason Specialty Diagnoses / Referred By Referred To Procedures Contact Contact Clinical Medical Adc Lab Laboratory [address] [place] [address] Encounter Details Date Type Department Care Team Description 03/21/2020 Marketing Communications Coordinator Visit [facility] Sloan Levine D O [address] [place] [address] Pre-operative Phlebotomy Only, Adc Test clearance (Primary Lab-Issue Dx) [address] [place] [address] Allergies Active Allergy Reactions Severity Noted Date Comments Sulfa (Sulfonamide Antibiotics) Rash 8 documented as of this encounter (statuses as of 03/21/2020) Medications Medication Sig Dispensed Refills Start Date [...] as of this encounter (statuses as of 03/21/2020) Active Problems Problem Noted Date UTI (urinary tract infection) 06/03/2019 Dizziness 06/03/2019 C. difficile colitis 06/03/2019 Complicated UTI (urinary tract infection) 06/02/2019 Essential hypertension 04/17/2018 Syncope 04/16/2018 documented as of this encounter (statuses as of 03/21/2020) Social History Tobacco Use Types Packs/Day Years [...] last month, have you been in contact Unable to assess 03/21/2020 1:54 PM CDT with someone who was confirmed or suspected to have Coronavirus / COVID-19? documented as of this encounter Last Filed Vital Signs Not on filedocumented in this encounter Nursing Notes Zari Diaz - 03/21/2020 2:00 PM CDTcovid pre op documented in this encounter Plan of Treatment Date Type Specialty Care Team Description 03/22/2020 Marketing Communications Coordinator Visit Parliamentary Archivist 05/04/2020 Office Visit Pulmonary Disease Sloan Levine DO [address] [place] [phone] Name Type Priority Associated Diagnoses Date/Ti me COVID-19 (ID NOW RAPID LAB Routine Pre-operative levicara riggsce 03/21/2020 2:01 PM CDT TESTING) Name Type Priority Associated Diagnoses Order S joslyn COVID-19 (ID NOW RAPID LAB Routine Pre-operative levi barrie Expected: 03/21/2020, TESTING) Expires: 2020 Health Maintenance Due Date Last Done Comments DTaP,Tdap,and Td Vaccines (1 - Tdap) 1949 Zoster Recombinant Vaccine (SHINGRIX) (1 of 2) 1982 Medicare Wellness Visit 1997 Osteoporosis Screening 1997 PNEUMOCOCCAL VACCINES 65+ (1 of 1 - PPSV23) 1997 INFLUENZA VACCINE (#1) 2020 Depression Screening 02/01/2021 02/02/2020 documented as of this encounter Implants Implanted Type Area Pneumatic Hoist Operator Device Identifier Shelf Exp iration Model / Serial Date / Lot Knee documented as of this encounter Results Not on filedocumented in this encounter Visit Diagnoses Diagnosis Pre-operative clearance - Primary Preoperative examination, unspecified documented in this encounter Additional Health Concerns Infection Onset Date Last Indicated Resolved Time Extended Contact- CDiff 06/04/2019 06/04/2019 COVID-19 Rule Out 03/21/2020 03/21/2020 documented as of this encounter Insurance Payer Benefit Plan / Subscriber ID Effective Dates Phone Addre ss Type Group HUMANA - HUMANA [id number] 2017-[facility] Adv MANAGED MEDICARE t FFS MEDICARE documented as of this encounter
--- OUTSIDE RECORDS SUMMARY | 2020-04-05 00:34 | XMS REPORT | Summary of Care ---
:1930 Author Organization [facility] Address [address] [place] [address] Care Team Providers Name Role Phone ShakeelIssa Primary Care Provider Reason for Visit Reason Comments Notification Encounter Details Date Type Department Care Team Description 02/23/2020 Telephone [facility] ADC Pulmonary Sloan Levine DO Notification Clinic [address]lee [address] [place] [phone] [phone] Allergies Active Allergy Reactions Severity Noted Date Comments Sulfa (Sulfonamide Antibiotics) Rash 8 documented as of this encounter (statuses as of 02/24/2020) Medications Medication Sig Dispensed Refills Start Date [...] as of this encounter (statuses as of 02/24/2020) Active Problems Problem Noted Date UTI (urinary tract infection) 06/03/2019 Dizziness 06/03/2019 C. difficile colitis 06/03/2019 Complicated UTI (urinary tract infection) 06/02/2019 Essential hypertension 04/17/2018 Syncope 04/16/2018 documented as of this encounter (statuses as of 02/24/2020) Social History Tobacco Use Types Packs/Day Years [...] this encounter Miscellaneous Notes Telephone Encounter - Victoria Vaughan MA - 02/24/2020 3:01 PM CDTWent over results for sputum samples again. Patient didn't realize it could take 6 week. Patient will call back if her symptoms begin to worsen. elephone Encounter - Margarito Alba - 02/23/2020 9:35 AM CDTPatient requesting a call in regards to lab results. Patient also had some questions for Dr. Levine but did not specify. Please advise. documented in this encounter Plan of Treatment Date Type Specialty Care Team Description 05/04/2020 Office Visit Pulmonary Disease Sloan Levine DO [address] [place] [address] Health Maintenance Due Date Last Done Comments DTaP,Tdap,and Td Vaccines (1 - Tdap) 1949 Zoster Recombinant Vaccine (SHINGRIX) (1 of 2) 1982 Medicare Wellness Visit 1997 Osteoporosis Screening 1997 PNEUMOCOCCAL VACCINES 65+ (1 of 1 - PPSV23) 1997 INFLUENZA VACCINE (#1) 2020 Depression Screening 02/01/2021 02/02/2020 documented as of this encounter Implants Implanted Type Area Ice Cream Freezer Assistant Device Identifier Shelf Exp iration Model / Serial Date / Lot Knee documented as of this encounter Results Not on filedocumented in this encounter Additional Health Concerns Infection Onset Date Last Indicated Resolved Time Extended Contact- CDiff 06/04/2019 06/04/2019 documented as of this encounter Insurance Payer Benefit Plan / Subscriber ID Effective Dates Phone Addre ss Type Group HUMANA - HUMANA [id number] 2017-[facility] Adv MANAGED MEDICARE t FFS MEDICARE documented as of this encounter
--- OUTSIDE RECORDS SUMMARY | 2020-04-05 00:34 | XMS REPORT | Summary of Care ---
:1930 Author Organization [facility] Address [address] [place] [address] Care Team Providers Name Role Phone ShakeelIssaton Primary Care Provider Reason for Visit Reason Comments Assessment Encounter Details Date Type Department Care Team Description 03/02/2020 Telephone [facility] ADC Pulmonary Sloan Levine DO Assessment Clinic [address] Karlee Stewart [address] [place] [address] [phone] Allergies Active Allergy Reactions Severity Noted Date Comments Sulfa (Sulfonamide Antibiotics) Rash 8 documented as of this encounter (statuses as of 03/02/2020) Medications Medication Sig Dispensed Refills Start Date [...] as of this encounter (statuses as of 03/02/2020) Active Problems Problem Noted Date UTI (urinary tract infection) 06/03/2019 Dizziness 06/03/2019 C. difficile colitis 06/03/2019 Complicated UTI (urinary tract infection) 06/02/2019 Essential hypertension 04/17/2018 Syncope 04/16/2018 documented as of this encounter (statuses as of 03/02/2020) Social History Tobacco Use Types Packs/Day Years [...] Telephone Encounter - Laurita Hsu RN - 03/02/2020 4:40 PM CDTPatient states she's Noticing that her heart rate seems to go up after using the albuterol She reports using it twice a day whether or not she needs it. She denies shortness of breath or wheezing or worsening ROSENBERG. She is scheduled for PFT. Advised. She can use the albuterol once a day as needed and may increase to twice a day for symptoms. She should rinse and spit after usage . Laura verbalized an understanding. Laurita RN Telephone Encounter - BolandKimberly - 03/02/2020 2:34 PM CDTPatient is stating she might be having side effects to albuterol 90 mcg/actuation inhaler. Her bloodpressure has been running high and also her heart rate. Please advise. documented in this encounter Plan of Treatment Date Type Specialty Care Team Description 03/19/2020 Timber Framer Visit Clinical Medical Only, Adc Test Laboratory 03/22/2020 Timber Framer Visit Ortho Rn 05/04/2020 Office Visit Pulmonary Disease Sloan Levine DO [address] [place] [address] Health Maintenance Due Date Last Done Comments DTaP,Tdap,and Td Vaccines (1 - Tdap) 1949 Zoster Recombinant Vaccine (SHINGRIX) (1 of 2) 1982 Medicare Wellness Visit 1997 Osteoporosis Screening 1997 PNEUMOCOCCAL VACCINES 65+ (1 of 1 - PPSV23) 1997 INFLUENZA VACCINE (#1) 2020 Depression Screening 02/01/2021 02/02/2020 documented as of this encounter Implants Implanted Type Area Private Branch Exchange Installer Device Identifier Shelf Exp iration Model / Serial Date / Lot Knee documented as of this encounter Results Not on filedocumented in this encounter Additional Health Concerns Infection Onset Date Last Indicated Resolved Time Extended Contact- CDiff 06/04/2019 06/04/2019 documented as of this encounter Insurance Payer Benefit Plan / Subscriber ID Effective Dates Phone Addre ss Type Group HUMANA - HUMANA [id number] 2017-[facility] Adv MANAGED MEDICARE t FFS MEDICARE documented as of this encounter
--- OUTSIDE RECORDS SUMMARY | 2020-04-05 00:34 | XMS REPORT | Summary of Care ---
:1930 Author Organization [facility] Address [address] [place] [address] Care Team Providers Name Role Phone ShakeelIssa Primary Care Provider Reason for Visit Reason Comments Results Encounter Details Date Type Department Care Team Description 02/20/2020 Telephone [facility] ADC Pulmonary Sloan Levine DO Results Clinic [address] Karlee Stewart [address] [place] [phone] Allergies Active Allergy Reactions Severity Noted Date Comments Sulfa (Sulfonamide Antibiotics) Rash 8 documented as of this encounter (statuses as of 02/21/2020) Medications Medication Sig Dispensed Refills Start Date [...] as of this encounter (statuses as of 02/21/2020) Active Problems Problem Noted Date UTI (urinary tract infection) 06/03/2019 Dizziness 06/03/2019 C. difficile colitis 06/03/2019 Complicated UTI (urinary tract infection) 06/02/2019 Essential hypertension 04/17/2018 Syncope 04/16/2018 documented as of this encounter (statuses as of 02/21/2020) Social History Tobacco Use Types Packs/Day Years [...] Telephone Encounter - Laurita Hsu RN - 02/21/2020 12:19 PM CDT [phone] (home) Laura Grande was informed of Dr. Levine's recommendations and verbalized an understanding. Laurita RN Telephone Encounter - Sloan Levine DO - 02/21/2020 10:25 AM CDTPlease let patient know that the initial results from sputum cultures do not show infection however some of the tests take up to 6 weeks to finalize. elephone Encounter - Victoria Vaughan MA - 02/21/2020 9:56 AM CDTPatient was informed that Dr. Levine will be in office on and can review results then. elephone Encounter - Kimberly Boland - 02/21/2020 9:03 AM CDTPatient is requesting a call back requesting her blood work results. Telephone Encounter - Bev Alvares - 02/20/2020 3:56 PM CDTPatient is calling again needing the results today. Please advise patient states its been a week nowwith no results. elephone Encounter - Tabatha Owens - 02/20/2020 1:55 PM CDT Patient would like results documented in this encounter Plan of Treatment Date Type Specialty Care Team Description 05/04/2020 Office Visit Pulmonary Disease Sloan Levine, [address] [place] [address] Health Maintenance Due Date Last Done Comments DTaP,Tdap,and Td Vaccines (1 - Tdap) 1949 Zoster Recombinant Vaccine (SHINGRIX) (1 of 2) 1982 Medicare Wellness Visit 1997 Osteoporosis Screening 1997 PNEUMOCOCCAL VACCINES 65+ (1 of 1 - PPSV23) 1997 INFLUENZA VACCINE (#1) 2020 Depression Screening 02/01/2021 02/02/2020 documented as of this encounter Implants Implanted Type Area Leak Operator Paraffin Plant Device Identifier Shelf Exp iration Model / Serial Date / Lot Knee documented as of this encounter Results Not on filedocumented in this encounter Additional Health Concerns Infection Onset Date Last Indicated Resolved Time Extended Contact- CDiff 06/04/2019 06/04/2019 documented as of this encounter Insurance Payer Benefit Plan / Subscriber ID Effective Dates Phone Addre ss Type Group HUMANA - HUMANA [id number] 2017-[facility] Adv MANAGED MEDICARE t FFS MEDICARE documented as of this encounter
--- OUTSIDE RECORDS SUMMARY | 2020-04-05 00:34 | XMS REPORT | Summary of Care ---
:1930 Author Organization [facility] - [facility] Address [address] [place] [address] Care Team Providers Name Role Phone Issa Beckford Primary Care Provider Encounter Details Date Type Department Care Team Description 02/14/2020 Hospital Encounter [facility] LAB Specimen Gadiel Conde, Carolee-Marcelo luna MD [address] [place] [phone] [place] [address] Allergies Active Allergy Reactions Severity [...] 05/04/2020 Office Visit Pulmonary Disease Sloan Levine, [address] [place] [phone] Health Maintenance Due Date Last Done Comments DTaP,Tdap,and Td Vaccines (1 - Tdap) 1949 Zoster Recombinant Vaccine (SHINGRIX) (1 of 2) 1982 Medicare Wellness Visit 1997 Osteoporosis Screening 1997 PNEUMOCOCCAL VACCINES 65+ (1 of 1 - PPSV23) 1997 INFLUENZA VACCINE (#1) 2020 Depression Screening 02/01/2021 02/02/2020 documented as of this encounter Implants Implanted Type Area Settlement Processor Device Identifier Shelf Exp iration Model / Serial Date / Lot Knee documented as of this encounter Results Not on filedocumented in this encounter Additional Health Concerns Infection Onset Date Last Indicated Resolved Time Extended Contact- CDiff 06/04/2019 06/04/2019 documented as of this encounter Insurance Payer Benefit Plan / Subscriber ID Effective Dates Phone Addre ss Type Group HUMANA - HUMANA [id number] 2017-[facility] Adv MANAGED MEDICARE t S MEDICARE documented as of this encounter
--- OUTSIDE RECORDS SUMMARY | 2020-04-05 00:35 | XMS REPORT | Summary of Care ---
:1930 Author Organization [facility] - [facility] Address [address] [place] [address] Care Team Providers Name Role Phone Issa Beckford Primary Care Provider Encounter Details Date Type Department Care Team Description 02/15/2020 Hospital Encounter [facility] LAB Specimen Gadiel Conde, Carolee-Marcelo luna MD [address] [place] [phone] [place] [address] Allergies Active Allergy Reactions Severity Noted Date Comments Sulfa (Sulfonamide Antibiotics) Rash 8 documented as of this encounter (statuses as of 04/03/2020) Medications Medication Sig Dispensed Refills Start Date [...] as of this encounter (statuses as of 04/03/2020) Active Problems Problem Noted Date UTI (urinary tract infection) 06/03/2019 Dizziness 06/03/2019 C. difficile colitis 06/03/2019 Complicated UTI (urinary tract infection) 06/02/2019 Essential hypertension 04/17/2018 Syncope 04/16/2018 documented as of this encounter (statuses as of 04/03/2020) Social History Tobacco Use Types Packs/Day Years [...] Assigned at Date Recorded Not on file documented as of this encounter Last Filed Vital Signs Not on filedocumented in this encounter Plan of Treatment Date Type Specialty Care Team Description 05/04/2020 Office Visit Pulmonary Disease Sloan Levine, [address] [place] [phone] Health Maintenance Due Date Last Done Comments DTaP,Tdap,and Td Vaccines (1 - Tdap) 1949 Zoster Recombinant Vaccine (SHINGRIX) (1 of 2) 1982 Medicare Wellness Visit 1997 Osteoporosis Screening 1997 PNEUMOCOCCAL VACCINES 65+ (1 of 1 - PPSV23) 1997 INFLUENZA VACCINE (#1) 2020 Depression Screening 02/01/2021 02/02/2020 documented as of this encounter Implants Implanted Type Area Accounting/Finance Tutor Device Identifier Shelf Exp iration Model / Serial Date / Lot Knee documented as of this encounter Results Not on filedocumented in this encounter Additional Health Concerns Infection Onset Date Last Indicated Resolved Time Extended Contact- CDiff 06/04/2019 06/04/2019 documented as of this encounter Insurance Payer Benefit Plan / Subscriber ID Effective Dates Phone Addre ss Type Group HUMANA - HUMANA [id number] [facility] MANAGED MEDICARE t FFS MEDICARE documented as of this encounter
--- OUTSIDE RECORDS SUMMARY | 2020-04-05 00:35 | XMS REPORT | Summary of Care ---
:1930 Author Organization [facility] - Health Address [address] [place] [address] Care Team Providers Name Role Phone Issa Beckford Primary Care Provider Encounter Details Date Type Department Care Team Description 03/22/2020 Orders Only [facility] Doctor Unassigned, No [address] [facility] [place] [address] [address] [place] [address] Allergies Active Allergy Reactions Severity Noted Date Comments Sulfa (Sulfonamide Antibiotics) Rash 8 documented as of this encounter (statuses as of 03/22/2020) Medications Medication Sig Dispensed Refills Start Date [...] as of this encounter (statuses as of 03/22/2020) Active Problems Problem Noted Date UTI (urinary tract infection) 06/03/2019 Dizziness 06/03/2019 C. difficile colitis 06/03/2019 Complicated UTI (urinary tract infection) 06/02/2019 Essential hypertension 04/17/2018 Syncope 04/16/2018 documented as of this encounter (statuses as of 03/22/2020) Social History Tobacco Use Types Packs/Day Years [...] 05/04/2020 Office Visit Pulmonary Disease Sloan Levine, [address] [place] [phone] Health Maintenance Due Date Last Done Comments DTaP,Tdap,and Td Vaccines (1 - Tdap) 1949 Zoster Recombinant Vaccine (SHINGRIX) (1 of 2) 1982 Medicare Wellness Visit 1997 Osteoporosis Screening 1997 PNEUMOCOCCAL VACCINES 65+ (1 of 1 - PPSV23) 1997 INFLUENZA VACCINE (#1) 2020 Depression Screening 02/01/2021 02/02/2020 documented as of this encounter Implants Implanted Type Area Boner Meat Device Identifier Shelf Exp iration Model / Serial Date / Lot Knee documented as of this encounter Procedures Procedure Name Priority Date/Time Associated Diagnosis Comme nts ASSIGNMENT OF BENEFITS Routine 03/22/2020 2:15 PM CDT documented in this encounter Results Not on filedocumented in this encounter Additional Health Concerns Infection Onset Date Last Indicated Resolved Time Extended Contact- CDiff 06/04/2019 06/04/2019 documented as of this encounter Insurance Payer Benefit Plan / Subscriber ID Effective Dates Phone Addre ss Type Group HUMANA - HUMANA [id number] 2017-[facility] MANAGED MEDICARE t S MEDICARE documented as of this encounter
--- OUTSIDE RECORDS SUMMARY | 2020-04-05 00:35 | XMS REPORT | Summary of Care ---
:1930 Author Organization [facility] Address [address] [place] [address] Care Team Providers Name Role Phone BeckfordIssa Primary Care Provider Reason for Visit Reason Comments Results Encounter Details Date Type Department Care Team Description 04/04/2020 Telephone [facility] ADC Pulmonary Sloan Levine, Results Clinic [address] Karlee Stewart [address] [place] [phone] Allergies Active Allergy Reactions Severity Noted Date Comments Sulfa (Sulfonamide Antibiotics) Rash 8 documented as of this encounter (statuses as of 04/04/2020) Medications Medication Sig Dispensed Refills Start Date [...] as of this encounter (statuses as of 04/04/2020) Active Problems Problem Noted Date UTI (urinary tract infection) 06/03/2019 Dizziness 06/03/2019 C. difficile colitis 06/03/2019 Complicated UTI (urinary tract infection) 06/02/2019 Essential hypertension 04/17/2018 Syncope 04/16/2018 documented as of this encounter (statuses as of 04/04/2020) Social History Tobacco Use Types Packs/Day Years [...] Telephone Encounter - Victoria Vaughan MA - 04/04/2020 4:46 PM CDTPatient and her daughter state that no one has contacted them at all regarding any results. I did explain that we had documentation stating we have spoken with Ms. Grande on multiple occasions regarding results. Daughter of patient stated that she has been with her mother at all time and she has not received any calls. Patient has had a second opinion with another rn compliance and will be going to the hospital to get all of her records to establish care with the new rn compliance. Patient asked that we cancel her f/u appointment scheduled in Apr. elephone Encounter - Sloan Levine DO - 04/04/2020 1:39 PM CDTCT scan results were discussed with patient on telephone encounter 02/10/2020. AFB cultures are negative to date PFT's showed moderate restriction in lung function We can discuss with patient next steps in clinic with regards to abnormal CT scan. Options include doing a bronchoscopy to get a biopsy. elephone Encounter - Taty Spence, RN - 04/04/2020 1:03 PM CDTIt appears patient completed CT on 02.02.2020 The results are viewable in Epic however I do not see a result note from Dr. Levine. Routed to provider for results. elephone Encounter - Margarito Alba - 04/04/2020 12:56 PM CDTPatient calling to hear CT scan results and breathing test results. Please advise. CT scan was done back in February. Patient states they have not heard from anybody. documented in this encounter Plan of Treatment Date Type Specialty Care Team Description 05/04/2020 Office Visit Pulmonary Disease Sloan Levine DO [address] [place] [address] Health Maintenance Due Date Last Done Comments DTaP,Tdap,and Td Vaccines (1 - Tdap) 1949 Zoster Recombinant Vaccine (SHINGRIX) (1 of 2) 1982 Medicare Wellness Visit 1997 Osteoporosis Screening 1997 PNEUMOCOCCAL VACCINES 65+ (1 of 1 - PPSV23) 1997 INFLUENZA VACCINE (#1) 2020 Depression Screening 02/01/2021 02/02/2020 documented as of this encounter Implants Implanted Type Area Manager Content Device Identifier Shelf Exp iration Model / Serial Date / Lot Knee documented as of this encounter Results Not on filedocumented in this encounter Additional Health Concerns Infection Onset Date Last Indicated Resolved Time Extended Contact- CDiff 06/04/2019 06/04/2019 documented as of this encounter Insurance Payer Benefit Plan / Subscriber ID Effective Dates Phone Addre ss Type Group HUMANA - HUMANA [id number] 2017-[facility] Adv MANAGED MEDICARE t FFS MEDICARE documented as of this encounter
[2020-04-05] MEDS ORDERED: NA CHLORIDE 0.9% 500 ML ONE (01:31)
[2020-04-05] MEDS ORDERED: FOLIC ACID 5 MG/ML VIAL ONE (01:32)
[2020-04-05 01:43] LABS: Absolute Lymphocytes (CBC) 2.1 K/uL (0.7-4.9); Basophils % 0.6 % (0-1.3); Lymphocytes % 20.9 % (15.3-44.8); MPV 7.5 fL (7.6-11.3)
[2020-04-05 01:44] LABS: Protime INR 1.05
[2020-04-05 01:56] LABS: ALT/SGPT 24 U/L (12-78); Albumin 2.9 g/dL (3.4-5.0); Alkaline Phosphatase 90 U/L (45-117); BUN Blood Urea Nitrogen 35 mg/dL (7-18); Bicarbonate 27 mmol/L (21-32); Bilirubin Direct 0.2 mg/dL (0-0.2); Bilirubin Total 0.7 mg/dL (0.2-1.0); Glucose Level 88 mg/dL (74-106); Lipase 215 U/L (73-393); NT PRO-BNP 266 pg/mL (<450); Protein, Total 6.7 g/dL (6.4-8.2); Sodium Level 133 mmol/L (136-145); Troponin (Emerg Dept Use Only) 0.02 ng/mL (0.0-0.045)
[2020-04-05 01:57] LABS: AST/SGOT 20 U/L (15-37); C-Reactive Protein < 2.90 mg/L (<3.00); Magnesium 1.6 mg/dL (1.8-2.4); Potassium 3.4 mmol/L (3.5-5.1)
--- NOTE | 2020-04-05 02:46 | EDPHYS ---
Physician Documentation [facility] Name: Laura Grande Age: 89 yrs Sex: Female : 1930 Arrival Date: 04/05/2020 Time: 00:31 Bed 7 Private MD: ED Physician Chapito Brooks HPI: 04/05 01:21 This 89 yrs old Female presents to ER via EMS with complaints of chest pain, brendan difficulty swallowing,choking. 01:21 The patient or guardian reports chest pain that is located primarily in the substernal brendan area. Onset: 3 hour(s) ago. The pain does not radiate. Associated signs and symptoms: The patient has no apparent associated signs or symptoms. The chest pain is described as dull, a pressure. Modifying factors: The symptoms are alleviated by nothing. the symptoms are aggravated by nothing. Severity of pain: At its worst the pain was mild in the emergency department the pain is unchanged. The patient has not experienced similar symptoms in the past. Historical: - Allergies: 00:25 Sulfa (Sulfonamide Antibiotics); jb4 - Home Meds: 00:25 Norvasc 10 mg Oral tab 1 tab once daily [Active]; Avapro Oral [Active]; metoprolol jb4 succinate 100 mg oral Tb24 [Active]; clonidine HCl 0.1 mg Oral tab [Active]; Synthroid 112 mcg Oral tab [Active]; multivitamin oral oral [Active]; calcium [Active]; aspirin 81 mg Oral chew [Active]; Miralax Oral [Active]; - PMHx: 00:25 Hypertension; Hypothyroidism; Hernia; nodules on lungs; jb4 - PSHx: 00:25 Tonsillectomy; Cholecystectomy; Bladder suspension; Hernia repair; left wrist; right jb4 knee; bladder sling and pelvic floor repair; cataracts ALANNAH EYES; - Immunization history:: Adult Immunizations up to date. - Social history:: Smoking status: Patient denies any tobacco usage or history of. Patient/guardian denies using alcohol, street drugs. - Family history:: not pertinent. ROS: 01:21 Constitutional: Negative for fever, chills, and weight loss, Eyes: Negative for injury, brendan pain, redness, and discharge, ENT: Negative for injury, pain, and discharge, Neck: Negative for injury, pain, and swelling, Respiratory: Negative for shortness of breath, cough, wheezing, and pleuritic chest pain, Abdomen/GI: Negative for abdominal pain, nausea, vomiting, diarrhea, and constipation, Back: Negative for injury and pain, : Negative for injury, bleeding, discharge, and swelling, MS/Extremity: Negative for injury and deformity, Skin: Negative for injury, rash, and discoloration, Neuro: Negative for headache, weakness, numbness, tingling, and seizure, Psych: Negative for depression, anxiety, suicide ideation, homicidal ideation, and hallucinations, Allergy/Immunology: Negative for hives, rash, and allergies, Endocrine: Negative for neck swelling, polydipsia, polyuria, polyphagia, and marked weight changes, Hematologic/Lymphatic: Negative for swollen nodes, abnormal bleeding, and unusual bruising. :21 Cardiovascular: Positive for chest pain. Exam: Constitutional: This is a well developed, well nourished patient who is awake, alert, brendan and in no acute distress. Head/Face: Normocephalic, atraumatic. Eyes: Pupils equal round and reactive to light, extra-ocular motions intact. Lids and lashes normal. Conjunctiva and sclera are non-icteric and not injected. Cornea within normal limits. Periorbital areas with no swelling, redness, or edema. ENT: Nares patent. No nasal discharge, no septal abnormalities noted. Tympanic membranes are normal and external auditory canals are clear. Oropharynx with no redness, swelling, or masses, exudates, or evidence of obstruction, uvula midline. Mucous membranes moist. Neck: Trachea midline, no thyromegaly or masses palpated, and no cervical lymphadenopathy. Supple, full range of motion without nuchal rigidity, or vertebral point tenderness. No Meningismus. Chest/axilla: Normal chest wall appearance and motion. Nontender with no deformity. No lesions are appreciated. Cardiovascular: Regular rate and rhythm with a normal S1 and S2. No gallops, murmurs, or rubs. Normal PMI, no JVD. No pulse deficits. Respiratory: Lungs have equal breath sounds bilaterally, clear to auscultation and percussion. No rales, rhonchi or wheezes noted. No increased work of breathing, no retractions or nasal flaring. Abdomen/GI: Soft, non-tender, with normal bowel sounds. No distension or tympany. No guarding or rebound. No evidence of tenderness throughout. Back: No spinal tenderness. No costovertebral tenderness. Full range of motion. Female : Normal external genitalia. Skin: Warm, dry with normal turgor. Normal color with no rashes, no lesions, and no evidence of cellulitis. MS/ Extremity: Pulses equal, no cyanosis. Neurovascular intact. Full, normal range of motion. Neuro: Awake and alert, GCS 15, oriented to person, place, time, and situation. Cranial nerves II-XII grossly intact. Motor strength 5/5 in all extremities. Sensory grossly intact. Cerebellar exam normal. Normal gait. Psych: Awake, alert, with orientation to person, place and time. Behavior, mood, and affect are within normal limits. 01:35 ECG was reviewed by the Attending Physician. [facility] Vital Signs: 00:25 BP 138 / 88; Pulse 76; Resp 16; Temp 97.8(O); Pulse Ox 100% on R/A; Weight 54.43 kg [facility] (R); Height 5 ft. 5 in. (165.10 cm) (R); Pain 0/10; 01:30 BP 143 / 86; Pulse 68; Resp 18; Pulse Ox 100% on R/A; mg2 02:40 BP 160 / 90; Pulse 78; Resp 18; Pulse Ox 100% on R/A; jb4 04:00 BP 96 / 57; Pulse 63; Resp 16; Pulse Ox 97% on R/A; jb4 05:00 BP 137 / 75; Pulse 66; Resp 18; Pulse Ox 100% on R/A; jb4 00:25 Body Mass Index 19.97 (54.43 kg, 165.10 cm) [facility] NIH Stroke Scale Scores: 01:21 NIHSS Score: 0 [facility] MDM: 00:41 Patient medically screened. [facility] 01:29 Data reviewed: vital signs, nurses notes, lab test result(s), EKG, radiologic studies, [facility] CT scan, plain films. 04:42 Differential diagnosis: abnormal EKG, coronary artery disease chest wall pain, brendan costochondritis, pericarditis, pleurisy, pneumonia, pneumothorax, pulmonary embolus, stable angina, unstable angina. HEART Score: History: Slightly Suspicious (0), ECG: Normal (0), Age: > or = 65 years (2), Risk Factors: > or = 3 Risk factors for atherosclerotic disease (2), [Hypercholesterolemia] [Hypertension] [+ Family HX] Troponin: < or = 1 x Normal Limit (0). The patient was given aspirin in the Emergency Department. The patient's deep vein thrombosis risk score was calculated as follows: the patient is receiving ongoing or pallative cancer treatment (1.0 Pts) Total Score: 1 to 2 points. This patient was found to be at moderate risk for a deep vein thrombosis by using the Well's assessment criteria. The patient's pulmonary embolism risk score was calculated as follows: malignancy Total Score: 0-2 points. This patient was found to be at low risk for a pulmonary embolism by using the Well's assessment criteria. MIREYA Risk Score: 1 - patient's age is greater or equal to 65 years, 1 - Three or more CAD risk factors, 1- Known CAD, 1 - ASA use in past 7 days, TOTAL SCORE = 4. Data interpreted: groundwater monitoring technician: rate is 68 beats/min, Pulse oximetry: on room air is 100 %. Test interpretation: by ED physician or midlevel provider: ECG, plain radiologic studies. Counseling: I had a detailed discussion with the patient and/or guardian regarding: the historical points, exam findings, and any diagnostic results supporting the discharge/admit diagnosis, the presence of at least one elevated blood pressure reading (>120/80) during this emergency department visit, lab results, radiology results, the need to transfer to another facility, for higher level of care, [facility] does not immediately have the required specialist. 04/05 00:59 Order name: Basic Metabolic Panel; Complete Time: 02:04/05 00:59 Order name: CBC with Diff; Complete Time: 02:04/05 00:59 Order name: LFT's; Complete Time: 02:04/05 00:59 Order name: Magnesium; Complete Time: 02:04/05 00:59 Order name: NT PRO-BNP; Complete Time: 02:04/05 00:59 Order name: PT-INR; Complete Time: 02:04/05 00:59 Order name: Troponin (emerg Dept Use Only); Complete Time: 02:04/05 00:59 Order name: XRAY Chest (1 view) [facility] 04/05 00:59 Order name: Lipase; Complete Time: 02: [facility] 04/05 00:59 Order name: CT Head Brain wo Cont 04/05 00:59 Order name: CRP; Complete Time: : [facility] 04/05 00:59 Order name: Sed Rate; Complete Time: 02: [facility] 04/05 00:59 Order name: EKG; Complete Time: 01: [facility] 04/05 00:59 Order name: Cardiac monitoring; Complete Time: : [facility] 04/05 00:59 Order name: EKG - Nurse/Tech; Complete Time: : [facility] 04/05 00:59 Order name: IV Saline Lock; Complete Time: : [facility] 04/05 00:59 Order name: Labs collected and sent; Complete Time: [facility] 04/05 00:59 Order name: O2 Per Protocol; Complete Time: : [facility] 04/05 00:59 Order name: O2 Sat Monitoring; Complete Time: : [facility] 04/05 02:25 Order name: PO challenge: juice, oj; Complete Time: 02:56 [facility] EC:35 Rate is 74 beats/min. Rhythm is regular. QRS [place] is Normal. [place] interval is normal. QRS brendan interval is normal. QT interval is normal. No Q waves. T waves are Normal. No ST changes noted. Clinical impression: NSR w/ Non-specific ST/T Changes, LVH, and No evidence of ischemia. Interpreted by me. Reviewed by me. Administered Medications: 01:30 Drug: NS 0.9% 500 ml Route: IV; Rate: bolus; Site: right antecubital; jb4 02:00 Follow up: Response: No adverse reaction; IV Status: Completed infusion; IV Intake: jb4 500ml 01:30 Drug: foLIC Acid 1 mg Route: IVPB; Site: right antecubital; jb4 01:32 Follow up: Response: No adverse reaction; IV Status: Completed infusion; IV Intake: [id number] 03:10 Drug: Magnesium Sulfate 1 grams Route: IVPB; Infused Over: 1 hrs; Site: right jb4 antecubital; 04:10 Follow up: Response: No adverse reaction; IV Status: Completed infusion jb4 03:10 Drug: Aspirin 81 mg Route: PO; jb4 03:40 Follow up: Response: No adverse reaction jb4 03:10 Drug: Tylenol 650 mg Route: PO; jb4 03:40 Follow up: Response: No adverse reaction; Pain is decreased jb4 Disposition: 04/05/20 03:04 Transfer ordered to [facility]. 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 - Reason for transfer: Higher level of care. - Accepting physician is to meth in [place]. - Condition is Fair. - Problem is new. - Symptoms have improved. NIH Stroke Scale - NIH Stroke Score Date: 04/05/2020 Time: 01: Total Score = 0 1a. Level of Consciousness (LOC) - 0(Alert) 1b. Level of Consciousness (LOC) (Year \T\ Age) - 0(Both) 1c. LOC Commands (Open \T\ Closes Eyes/Procurement Assistant) - 0(Both) 2. Best Gaze (Lateral Gaze Paresis) - 0(Normal) 3. Visual Field Loss - 0(No visual loss) 4. Facial Palsy - 0(Normal) 5a. Left Arm: Motor (10-second hold) - 0(No drift) 5b. Right Arm: Motor (10-second hold) - 0(No drift) 6a. Left Leg: Motor (5-second hold - always test supine) - 0(No drift) 6b. Right Leg: Motor (5-second hold - always test supine) - 0(No drift) 7. Limb Ataxia (finger/nose \T\ heel/galindo - test with eyes open) - 0(Absent) 8. Sensory Loss (pinprick arms/legs/face) - 0(Normal) 9. Best Language: Aphasia (description/naming/reading) - 0(No aphasia) 10. Dysarthria (speech clarity - read or repeat words) - 0(Normal) 11. Extinction and Inattention (visual/tactile/auditory/spatial/personal) - 0(No abnormality) Initials: [facility] Signatures: Dispatcher [employer] EDChapito Hoang MD MD cha Smirch, Shelby, RN RN Colby Wong RN RN jb4 Corrections: (The following items were deleted from the chart) 03:02 02:45 Hospitalization Ordered by Greg Kamara for Observation. Preliminary brendan diagnosis is Dysphagia; Hypokalemia; Hypomagnesemia; Chest pain, unspecified. Bed requested for Telemetry/MedSurg (observation). Status is Observation. Condition is Stable. Problem is new. Symptoms have improved. brendan 03:08 03:04 04/05/2020 03:04 Transfer ordered to [facility]. Diagnosis is brendan Dysphagia; Hypokalemia; Hypomagnesemia; Chest pain, unspecified. Reason for transfer: Higher level of care. Accepting physician is to meth in [place]. Condition is Fair. Problem is new. Symptoms have improved. brendan 07:45 03:08 04/05/2020 03:04 Transfer ordered to [facility]. 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 Reason for transfer: Higher level of care. Accepting physician is to meth in [place]. Condition is Fair. Problem is new. Symptoms have improved. brendan
--- NOTE | 2020-04-05 02:46 | ER ---
Nurse's Notes 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 Pt was given Benadryl, has a 20g in the RAC. 00:25 Coronavirus screen: Client denies travel out of the [place] in the last 14 days. At this jb4 time, the client does not indicate any symptoms associated with coronavirus-19. Ebola Screen: No symptoms or risks identified at this time. Initial Sepsis Screen: Does the patient meet any 2 criteria? No. Patient's initial sepsis screen is negative. Does the patient have a suspected source of infection? No. Patient's initial sepsis screen is negative. Risk Assessment: Do you want to hurt yourself or someone else? Patient reports no desire to harm self or others. Onset of symptoms was April 04, 2020 at 21:00. Care prior to arrival: Medication(s) given: Benadryl IV initiated. 20 GA, in the right antecubital area. 00:25 Method Of Arrival: [facility] jb4 00:25 Acuity: MANUEL 3 jb4 Historical: - Allergies: 00:25 Sulfa (Sulfonamide Antibiotics); jb4 - Home Meds: 00:25 Norvasc 10 mg Oral tab 1 tab once daily [Active]; Avapro Oral [Active]; metoprolol jb4 succinate 100 mg oral Tb24 [Active]; clonidine HCl 0.1 mg Oral tab [Active]; Synthroid 112 mcg Oral tab [Active]; multivitamin oral oral [Active]; calcium [Active]; aspirin 81 mg Oral chew [Active]; Miralax Oral [Active]; - PMHx: 00:25 Hypertension; Hypothyroidism; Hernia; nodules on lungs; jb4 - PSHx: 00:25 Tonsillectomy; Cholecystectomy; Bladder suspension; Hernia repair; left wrist; right jb4 knee; bladder sling and pelvic floor repair; cataracts ALANNAH EYES; - Immunization history:: Adult Immunizations up to date. - Social history:: Smoking status: Patient denies any tobacco usage or history of. Patient/guardian denies using alcohol, street drugs. - Family history:: not pertinent. Screenin:29 Abuse screen: Denies threats or abuse. Denies injuries from another. Nutritional mg2 screening: No deficits noted. Tuberculosis screening: No symptoms or risk factors identified. Fall Risk IV access (20 points). Assessment: 01:29 General: Appears in no apparent distress. comfortable, Behavior is calm, cooperative. mg2 Pain: Denies pain. Neuro: Level of Consciousness is awake, alert, obeys commands, Oriented to person, place, time, situation. Cardiovascular: Capillary refill < 3 seconds Patient's skin is warm and dry. Respiratory: Airway is patent Respiratory effort is even, unlabored, Respiratory pattern is regular, symmetrical. GI: Abdomen is flat. : No signs and/or symptoms were reported regarding the genitourinary system. EENT: Reports difficulty swallowing since tonight. Derm: Skin is intact, is healthy with good turgor, Skin is pink, warm \\T\\ dry. normal. Musculoskeletal: Circulation, motion, and sensation intact. Capillary refill < 3 seconds. 02:30 Reassessment: Patient appears in no apparent distress at this time. Patient and/or jb4 family updated on plan of care and expected duration. Pain level reassessed. Patient is alert, oriented x 3, equal unlabored respirations, skin warm/dry/pink. 03:30 Reassessment: Patient appears in no apparent distress at this time. Patient and/or jb4 family updated on plan of care and expected duration. Pain level reassessed. Patient is alert, oriented x 3, equal unlabored respirations, skin warm/dry/pink. 04:30 Reassessment: Patient appears in no apparent distress at this time. Patient and/or jb4 family updated on plan of care and expected duration. Pain level reassessed. Patient is alert, oriented x 3, equal unlabored respirations, skin warm/dry/pink. 05:30 Reassessment: Patient appears in no apparent distress at this time. Patient and/or jb4 family updated on plan of care and expected duration. Pain level reassessed. Patient is alert, oriented x 3, equal unlabored respirations, skin warm/dry/pink. 06:24 Reassessment: Patient and/or family updated on plan of care and expected duration. Pain sg level reassessed. Patient is alert, oriented x 3, equal unlabored respirations, skin warm/dry/pink. attempt to call report to [phone], no answer at this time. Vital Signs: 00:25 BP 138 / 88; Pulse 76; Resp 16; Temp 97.8(O); Pulse Ox 100% on R/A; Weight 54.43 kg jb4 (R); Height 5 ft. 5 in. (165.10 cm) (R); Pain 0/10; 01:30 BP 143 / 86; Pulse 68; Resp 18; Pulse Ox 100% on R/A; mg2 02:40 BP 160 / 90; Pulse 78; Resp 18; Pulse Ox 100% on R/A; jb4 04:00 BP 96 / 57; Pulse 63; Resp 16; Pulse Ox 97% on R/A; jb4 05:00 BP 137 / 75; Pulse 66; Resp 18; Pulse Ox 100% on R/A; jb4 00:25 Body Mass Index 19.97 (54.43 kg, 165.10 cm) jb4 NIH Stroke Scale Scores: 01:21 NIHSS Score: 0 brendan ED Course: 00:25 Arm band placed on right wrist. jb4 00:31 Patient arrived in ED. tl1 00:37 Colby Diaz, RN is Primary Nurse. jb4 00:40 Triage completed. jb4 00:41 Chapito Brooks MD is Attending Physician. brendan 01:21 XRAY Chest (1 view) In Process Unspecified. EDMS 01:28 No provider procedures requiring assistance completed. Maintain EMS IV. Dressing mg2 intact. Good blood return noted. Site clean \\T\\ dry. Gauge \\T\\ site: 20 \\T\\ RAC. 01:30 Patient has correct armband on for positive identification. patient access representative on. Pulse mg2 ox on. NIBP on. Door closed. Warm blanket given. 02:01 CT Head Brain wo Cont In Process Unspecified. EDMS 02:44 Greg Kamara is Hospitalizing Provider. brendan 03:[address] Fiona Bernard the patient's blocker hand call center to have Dr. Brooks mw2 speak to the patient's doctor. 04:40 initiated a transfer with Maria the Meat Supervisor at [facility]. mw2 05:58 called Maria the Meat Supervisor from [facility] to check on the status mw2 of the transfer. She stated that " it got busy but I didn't forget about it, I'm still working on it.". 06:14 administrative approval given by Maria Bell/ patient has been accepted to [address] bed 522/ Dr. Bernard has accepted the patient in transfer/ report to be called to [phone]. Administered Medications: 01:30 Drug: NS 0.9% 500 ml Route: IV; Rate: bolus; Site: right antecubital; jb4 02:00 Follow up: Response: No adverse reaction; IV Status: Completed infusion; IV Intake: jb4 500ml 01:30 Drug: foLIC Acid 1 mg Route: IVPB; Site: right antecubital; jb4 01:32 Follow up: Response: No adverse reaction; IV Status: Completed infusion; IV Intake: [id number] 03:10 Drug: Magnesium Sulfate 1 grams Route: IVPB; Infused Over: 1 hrs; Site: right jb4 antecubital; 04:10 Follow up: Response: No adverse reaction; IV Status: Completed infusion jb4 03:10 Drug: Aspirin 81 mg Route: PO; jb4 03:40 Follow up: Response: No adverse reaction jb4 03:10 Drug: Tylenol 650 mg Route: PO; jb4 03:40 Follow up: Response: No adverse reaction; Pain is decreased jb4 Intake: 01:32 IV: 10ml; Total: 10ml. jb4 02:00 IV: 500ml; Total: 510ml. jb4 Outcome: 02:45 Decision to Hospitalize by Provider. brendan 03:04 ER care complete, transfer ordered by MD. brendan 06:33 Transferred by ground EMS sg 06:33 Condition: stable 06:33 Instructed on the need for transfer, report given to NANCY Longo 07:45 Patient left the ED. NIH Stroke Scale - NIH Stroke Score Date: 04/05/2020 Time: 01:21 Total Score = 0 1a. Level of Consciousness (LOC) - 0(Alert) 1b. Level of Consciousness (LOC) (Year \\T\\ Age) - 0(Both) 1c. LOC Commands (Open \\T\\ Closes Eyes/Heater Room Helper) - 0(Both) 2. Best Gaze (Lateral Gaze Paresis) - 0(Normal) 3. Visual Field Loss - 0(No visual loss) 4. Facial Palsy - 0(Normal) 5a. Left Arm: Motor (10-second hold) - 0(No drift) 5b. Right Arm: Motor (10-second hold) - 0(No drift) 6a. Left Leg: Motor (5-second hold - always test supine) - 0(No drift) 6b. Right Leg: Motor (5-second hold - always test supine) - 0(No drift) 7. Limb Ataxia (finger/nose \\T\\ heel/galindo - test with eyes open) - 0(Absent) 8. Sensory Loss (pinprick arms/legs/face) - 0(Normal) 9. Best Language: Aphasia (description/naming/reading) - 0(No aphasia) 10. Dysarthria (speech clarity - read or repeat words) - 0(Normal) 11. Extinction and Inattention (visual/tactile/auditory/spatial/personal) - 0(No abnormality) Initials: brendan Signatures: Dispatcher [employer] EDSegun Perry RN Chapito Olvera MD MD cha Smirch, Shelby, RN NANCY ss Sonia Thomas RN RN tl1 Colby Diaz RN RN jb4 Cedric Leach mw2 Raul Guillen, RN RN mg2 Corrections: (The following items were deleted from the chart) 04:27 03:[address] Reta Hart the patient's blocker hand call center to have Dr. alex Brooks speak to the patient's doctor. mw2 04:51 03:[address] Reta Chen the patient's blocker hand call center to have Dr. alex Brooks speak to the patient's doctor. mw2
[2020-04-05] MEDS ORDERED: ASPIRIN 81 MG CHEWABLE TABLET ONE (03:18)
[2020-04-05] MEDS ORDERED: MAGNESIUM SULFATE 1 gm IVPB 1 GM/100 ML BAG IV ONE (03:18)
[2020-04-05] MEDS ORDERED: ACETAMINOPHEN 325 MG TABLET ONE (03:18)
[2020-04-05 07:54] VITALS: BP 137/75; O2SAT 100
--- NOTE | 2020-04-05 08:39 | RAD REPORT ---
EXAM DESCRIPTION: RAD - Chest Single View - 04/05/2020 1:21 am CLINICAL HISTORY: CHEST PAIN COMPARISON: May 2013 two view chest, July 2013 CT chest TECHNIQUE: AP portable chest image was obtained 04/05/2020 1:21 am . FINDINGS: Patient has a baseline extensive interstitial opacification pattern. Numerous airspace opa cities are present throughout both lung teixeira. This is new from prior imaging. Apical pleural thicke maricarmen is present new from the prior examination. Small cavitary lesion lateral upper right lung field was present on the CT study. Heart size is upper normal. Vasculature within normal limits. Right hilar elevation is present No nichole surable pleural effusion and no pneumothorax. No acute bony abnormality seen. No acute aortic finding s suspected. IMPRESSION: Patient has extensive airspace opacification throughout both lung teixeira, chronic inters titial opacification right apical pleural thickening. The apical pleural thickening is new from prior imaging and would not be acute. Patient has a baselin e fibrotic pattern that is probably progressed. The numerous airspace opacities are nonspecific in a patient with possible allergic pulmonary edema. No recent chest film seen to establish current baseline.
--- NOTE | 2020-04-05 10:11 | RAD REPORT ---
EXAM DESCRIPTION: CT - Head Brain Wo Cont - 04/05/2020 6:36 am CLINICAL HISTORY: DECLINING STATE COMPARISON: None. TECHNIQUE: Head/brain axial images acquired without contrast. Coronal and sagittal reformats created . Exam performed according to departmental dose-optimization program which includes automated exposur e control, adjustment of mA and/or kV according to patient size, and/or use of iterative reconstructi on technique. FINDINGS: No midline shift, mass effect, intracranial hemorrhage, or hydrocephalus. CSF spaces appear overall mildly enlarged likely representing age-appropriate cerebral volume loss. Both lenses show postsurgical changes. Paranasal sinuses and mastoid air cells clear. No skull fracture or significant skull lesion. IMPRESSION: No CT evidence of acute intracranial abnormality. Electronically signed by: Sha Aguirre MD 04/05/2020 2:36 AM CDT Due to temporary technical issues with the PACS/Fluency reporting system, reports are being signed by the in house radiologist without review as a courtesy to ensure prompt reporting. The interpreting r adiologist is fully responsible for the content of the report.
== END 2020-04-05 07:45 | disposition short-term general hospital (02) ==
LOC: ER 00:28
DX: J84.10 Pulmonary fibrosis, unspecified (principal); E87.6 Hypokalemia; E83.42 Hypomagnesemia; R13.10 Dysphagia, unspecified; I10 Essential (primary) hypertension; E03.9 Hypothyroidism, unspecified; Z79.82 Long term (current) use of aspirin; Z88.2 Allergy status to sulfonamides
CPT/HCPCS: 96365; 93005; 85025; 80048; 36415; 83735; 85610; 80076; 85652; 84484; 83690; 83880; 86140; 70450; 71045; 96375; 99285; J3475; J7040